=== PATIENT | male | born 1955 | race Two or more races ===

== ENCOUNTER 2016-08-09 11:46 | Emergency (ER) | payer MEDICARE ==
[2016-08-09] MEDS ORDERED: DIAZEPAM 5 MG/ML 2 ML SYRINGE IM STA (12:11)
[2016-08-09] MEDS ORDERED: HYDROmorphone 1 MG/ML 1 ML SYRINGE IM STA (12:11)
--- NOTE | 2016-08-09 12:17 | ED ---
Upper Extremity HPI - General Chief Complaint: Extremity Injury, Upper Stated Complaint: back/shoulder pain Time Seen by Provider: 08/09/16 12:01 Source: patient, RN notes reviewed Mode of arrival: ambulatory Limitations: no limitations - History of Present Illness Initial Comments: 60-year-old male presents emergency Department chief complaint right shoulder pain. Patient states she's having ongoing shoulder pain worsening ever since he had surgery to his right hand. Patient states that Dr. Gee did surgery for trigger finger on his right hand. Patient states that shortly after having surgery he started having increasing right shoulder pain. Patient states that he followed up and advised him of this pain and at this time he received a cortisone injection in the anterior portion of the shoulder. Patient states that has not helped a continues to have worsening pain. Patient states his been taking [place] more than he is prescribed to alleviate the pain states is not helping. Patient states he called orthopedics again today and this a there is nobody there to evaluate him that he has no appointment tomorrow and get worsening symptoms or emergency department for possible MRI. Patient states that he has no weakness is increased pain to the shoulder. He states he has had prior surgery years ago for rotator cuff injury. Patient denies chest pain or shortness of breath. Denies any headache, dizziness, neck pain - Related Data Home Medications Medication Instructions Recorded Confirmed ZOLMitriptan [Zomig] 5 mg PO DAILY PRN 11/08/13 08/09/16 Escitalopram Oxalate [Lexapro] 10 mg PO DAILY 08/09/16 08/09/16 Fluticasone Nasal [place] [Flonase 1 spray EA NOSTRIL DAILY 08/09/16 08/09/16 Nasal [place]] HYDROcodone/APAP 5-325MG [[place] 1 tab PO Q6HR PRN 08/09/16 08/09/16 5-325] Losartan [Cozaar] 25 mg PO DAILY 08/09/16 08/09/16 traZODone HCL [Desyrel] 100 mg PO HS 08/09/16 08/09/16 Previous Rx's Medication Instructions Recorded Diazepam [Valium] 5 mg PO TID #10 tab 08/09/16 Allergies Allergy/AdvReac Type Severity Reaction Status Date / Time cephalexin monohydrate AdvReac yeast in Verified 08/09/16 12:44 [From Keflex] mouth Review of Systems ROS Statement: Those systems with pertinent positive or pertinent negative responses have been documented in the HPI. ROS Other: All systems not noted in ROS Statement are negative. Past Medical History Past Medical History: Sleep Apnea/CPAP/BIPAP Additional Past Medical History / Comment(s): chronic hip & back pain, migraines , recent bowel habit changes History of Any Multi-Drug Resistant Organisms: None Reported Past Surgical History: Orthopedic Surgery Additional Past Surgical History / Comment(s): right hip surg.,rt hand,rt shoulder Past Anesthesia/Blood Transfusion Reactions: No Reported Reaction Past Psychological History: Anxiety Smoking Status: Former smoker Past Alcohol Use History: None Reported Past Drug Use History: None Reported General Exam Limitations: no limitations General appearance: alert, in no apparent distress Neck exam: Present: normal inspection, full ROM. Absent: tenderness, meningismus, lymphadenopathy Respiratory exam: Present: normal lung sounds bilaterally. Absent: respiratory distress, wheezes, rales, rhonchi, stridor Cardiovascular Exam: Present: regular rate, normal rhythm, normal heart sounds. Absent: systolic murmur, diastolic murmur, rubs, gallop, clicks Extremities exam: Present: other (Right shoulder is tenderness palpation to the surface there is an area of ecchymosis noted, is old surgical scars noted patient has full range of motion neurovascular intact there is tenderness along the scapula patient equal strength bilaterally though he reports pain with range of motion.) Neurological exam: Present: alert, oriented X3, CN II-XII intact, reflexes normal. Absent: motor sensory deficit Skin exam: Present: warm, dry, intact, normal color. Absent: rash Course Vital Signs 08/09/16 08/09/16 11:57 12:44 Temperature 98.0 F 97.6 F Pulse Rate 81 66 Respiratory 20 16 Rate Blood Pressure 170/97 141/84 O2 Sat by Pulse 95 Oximetry Medical Decision Making - Medical Decision Making 60-year-old male presented for right shoulder pain. Patient states pain is improved after IM injections. Patient's CT shows some AC joint changes. Patient has an appointment tomorrow morning with orthopedics. Patient states his pain is under control and will be discharged. Disposition Clinical Impression: Right shoulder pain, Rotator cuff injury Disposition: HOME SELF-CARE Condition: Stable Instructions: Shoulder Pain (ED) Additional Instructions: Please return to the Emergency Department if symptoms worsen or any other concerns. Follow-up with orthopedics tomorrow morning. Prescriptions: Diazepam [Valium] 5 mg PO TID #10 tab Time of Disposition: 13:46
--- NOTE | 2016-08-09 13:29 | CT ---
EXAMINATION TYPE: CT shoulder RT wo con DATE OF EXAM: 08/09/2016 1:22 PM COMPARISON: NONE HISTORY: Right sided shoulder pain post OP anesthetic block 2-[address] DLP: [address] of the right shoulder with reconstruction imaging. TECHNIQUE: Unenhanced CT of the right shoulder was performed with bone and soft tissue window setting s submitted in the axial coronal and sagittal planes. FINDINGS: I do not see evidence for fracture or dislocation. No evidence for subacromial impingement as there is a flat acromium. There is osseous convex to the lung the undersurface of the distal cla vicle which may result in a degree of impingement. Moderate AC joint arthropathy and spurring seen. T here is degenerative narrowing of the glenohumeral joint space. Cystic degenerative changes seen of t he humeral head. No obvious rotator cuff abnormality seen on CT. MRI is much more sensitive and spec ific to rotator cuff pathology. No soft tissue masses appreciated. Visualized portions of the right lung demonstrate right apical scarring. IMPRESSION: 1. No evidence for fracture or dislocation. 2. I suspect a degree of subcutaneous clavicular impingement. AC joint arthropathy also seen. Degener ative changes as noted.
[2016-08-09 13:51] VITALS: BP 146/90; PULSE 95; RESP 20; TEMP 98.1
== END 2016-08-09 13:52 | disposition home or self-care (01) ==
LOC: EC 11:46
DX: S40.011A Contusion of right shoulder, initial encounter (principal); F41.9 Anxiety disorder, unspecified; Z87.891 Personal history of nicotine dependence; Z79.899 Other long term (current) drug therapy; Z88.1 Allergy status to other antibiotic agents; X58.XXXA Exposure to other specified factors, initial encounter
CPT/HCPCS: 99283; 96372 ×2; 73200; J3360; J1170

== ENCOUNTER 2017-08-24 09:47 | Day surgery (SDC) | payer MEDICARE ==
[2017-08-17 16:08] VITALS: BMI 29.5
[~2017-08-24 09:47] MED LIST: DEXAMETHASONE SOD PHOSPHATE 10 MG/ML 1 ML VIAL IV ONE; LACTATED RINGERS 1,000 ML IV SCH; MORPHINE SULFATE 4 MG/ML SYRINGE IV PRN; ONDANSETRON ODT 4 MG TAB PO ONE; SODIUM CHLORIDE 0.9% 1,000 ML IV SCH
[2017-08-24] MEDS ORDERED: IV FLUID CONTINUATION 950 ML IV ONE (10:34)
[2017-08-24 10:42] LABS: Anion Gap 10 mmol/L; Blood Urea Nitrogen 20 mg/dL (9-20); Calcium 9.1 mg/dL (8.4-10.2); Carbon Dioxide 23 mmol/L (22-30); Chloride 110 mmol/L (98-107); Glucose 88 mg/dL (74-99); Potassium 4.7 mmol/L (3.5-5.1); Sodium 143 mmol/L (137-145)
[2017-08-24 10:45] LABS: HCT 42.5 % (39.0-53.0); HGB 14.5 gm/dL (13.0-17.5); MCH 30.3 pg (25.0-35.0); MCHC 34.2 g/dL (31.0-37.0); MCV 88.5 fL (80.0-100.0); Mean Platelet Volume 6.6; Platelet Count 217 k/uL (150-450); RDW 13.3 % (11.5-15.5); WBC 5.6 k/uL (3.8-10.6)
[2017-08-24 11:29] LABS: Eosinophils # (M) 0.17 k/uL (0-0.7); Lymphocytes # (M) 1.96 k/uL (1.0-4.8); Monocytes # (M) 0.62 k/uL (0-1.0); Neutrophils # (M) 2.86 k/uL (1.3-7.7); Neutrophils % (M) 51 %; Nucleated Red Blood Cells 0 /100 WBC (0-0); Total Cells Counted 100
[2017-08-24 11:30] LABS: Anisocytosis (M) Present
[2017-08-24] MEDS ORDERED: ROCURONIUM BROMIDE 10 MG/ML 10 ML VIAL IV ONE (11:58)
[2017-08-24] MEDS ORDERED: MORPHINE SULFATE 10 MG/ML SYRINGE ONE (11:58)
[2017-08-24] MEDS ORDERED: HEPARIN SODIUM,PORCINE 5,000 UNIT/ML 1 ML VIAL ONE (11:58)
[2017-08-24] MEDS ORDERED: MIDAZOLAM 2 MG/2 ML VIAL ONE (11:58)
[2017-08-24] MEDS ORDERED: ISOPROTERENOL 250 MCG/1.25 ML SYR IV ONE (11:58)
[2017-08-24] MEDS ORDERED: PROPOFOL 10 MG/ML 20 ML VIAL IV ONE (11:58)
[2017-08-24] MEDS ORDERED: fentaNYL (PF) 50 MCG/ML 2 ML AMP ONE (11:58)
[2017-08-24] MEDS ORDERED: LIDOCAINE 2% INJ 20 MG/ML SQ ONE (12:28)
[2017-08-24] MEDS ORDERED: HEPARIN SODIUM 1,000 UN/ML (10ML VL) ONE (13:12)
[2017-08-24] MEDS ORDERED: HEPARIN SODIUM (1,000 UNIT/ML) 1,000 UNIT in SODIUM CHLORIDE 0.9% 1,000 ML IRRIGATION ONE (13:33)
[2017-08-24] MEDS ORDERED: ACETAMINOPHEN TAB 325 MG TAB PO PRN (14:31)
[2017-08-24] MEDS ORDERED: ACETAMINOPHEN IV (For NPO) 1,000 MG in EMPTY BAG 1 BAG IVPB ONE (14:36)
[2017-08-24] MEDS ORDERED: HYDROcodone/APAP 5-325MG 1 EACH TAB PO PRN (14:36)
[2017-08-24] MEDS ORDERED: SUMAtriptan SUCCINATE 50 MG TAB PO PRN (14:42)
--- NOTE | 2017-08-24 14:44 | P.PCN ---
Preoperative Diagnosis: Symptoms Recurrent syncope Twelve-lead ECG shows sinus rhythm normal AK interval 188 ms narrow QRS normal ST segments no delta waves no epsilon waves normal precordial ST segments normal QT interval narrow QRS Tilt table test performed Baseline blood pressure 132/86. His mercury Baseline heart rate 75 beats a minute Patient was tilted upright at an angle of 70 per protocol there was no significant change in his heart rate blood pressure and he remained asymptomatic throughout the procedure Impression Normal heart rate and blood pressure response to upright tilting Plan Patient also underwent successful atrial flutter ablation. He had no other inducible supraventricular tachycardias. No PVCs were introduced no nonsustained ventricular tachycardia was induced. If he continues to have recurrent presyncope then consider cardiac MRI given the QRS fractionation on the PVCs that were noted in his previous ECG. In addition implantation of a loop monitor may also be considered at that point Anesthesia: none Disposition: observation
[2017-08-24] MEDS ORDERED: LACTATED RINGERS 1,000 ML IV ONE (14:45)
--- NOTE | 2017-08-24 16:16 | CE ---
CARDIAC ELECTROPHYSIOLOGY REPORT Favio Rosales is a 61-year-old male patient of Dr. Zavala and Dr. Allen who has 1) recurrent syncope and 2) recurrent palpitations. The patient has stated that these two events are temporally unrelated. He first underwent a tilt table test which was normal. He is brought in for a diagnostic EP study, since we have documented supraventricular tachycardia at 150 beats per minute which is symptomatic. Patient was brought to the EP lab in a fasting state. Written informed consent was obtained prior to the procedure. The left shoulder area was prepped and draped as per protocol. Lidocaine 1% was used for local anesthesia. Venous sheaths were placed in the right and left femoral veins and diagnostic catheters were placed in the high right atrium, His bundle area, right ventricle and coronary sinus. Sinus cycle length 892 milliseconds, GA interval 157 milliseconds, QRS 84 milliseconds, QT 399 milliseconds. AH interval 118 milliseconds, HV interval 39 milliseconds. Sinus node recovery times at 600, 500 and 400 milliseconds were 1119, 1125 and 1235 milliseconds. Corresponding corrected sinus node recovery times were mildly prolonged at a paced cycle length of 400 milliseconds. AV node Wenckebach block 450 milliseconds. VA Wenckebach block greater than 500 milliseconds. No slow pathway or delta waves evident at baseline. Isuprel was started wide open and then 2 mcg. AV node Wenckebach block improved to 270 milliseconds. No evidence of slow pathway conduction. No delta waves noted. VA Wenckebach block at 420 milliseconds. Burst stimulation was performed from the high right atrium, from the right ventricle and from the coronary sinus. No arrhythmias were induced. Extrastimulation with up to double extrastimuli was performed. Two sites were interrogated. No inducible arrhythmias. Therefore decision was made to proceed with an atrial flutter ablation, since the patient had a supraventricular tachycardia with a ventricular rate of 150 beats per minute. Intracardiac echocardiography was performed. Three-dimensional mapping was performed. The isthmus was identified. Isthmus pouch was noted in the mid isthmus. eustachian ridge was noted. RF ablation was applied from the tricuspid anulus to the eustachian ridge. The line was completed anatomically and interrogated in a 100% grid. Non-capture was documented at high outputs along the line. With pacing maneuvers, differential pacing was performed. Pacing maneuvers were performed. Differential pacing improved a complete bidirectional block. All catheters were removed at the end of the procedure. The patient did receive 4000 units of IV heparin. PLAN: Anticoagulate with Xarelto 20 mg p.o. daily for at least one month starting today. Follow up with Dr. Zavala and Dr. Allen. MARC / CHRISTELLE: [id number] /
[2017-08-24] MEDS ORDERED: RIVAROXABAN 20 MG TAB PO SCH (17:30)
[2017-08-24] MEDS ORDERED: TEMAZEPAM 7.5 MG CAP PO PRN (19:30)
--- NOTE | 2017-08-25 08:19 | P.DS ---
Providers Attending physician: Joselito Greene Primary care physician: [facility] Course: Patient is doing well. He has not had any arrhythmias ECG is normal he denies any chest discomfort no dizziness lightheadedness and he denies any palpitations. He has been walking around to the bathroom On examination His pulse rate is in the 60s is afebrile 98.1F blood pressure 125/77 mmHg Head and neck examination is normal Heart sounds S1 and S2 are normal no murmurs or gallops no rub Breath sounds are clear no rhonchi no crackles Abdomen soft nontender Extremities warm no edema Impression History of supraventricular tachycardia at 150 beats a minute. Diagnostic EP study did not reveal any SVT such as AV node reentry, or orthodromic reentry. Successful atrial flutter ablation was performed. He also has a history of frequent PVCs with QRS fractionation. No PVCs and nonsustained ventricular tachycardiac been used Plan Discharge home bilevel him today. Xarelto 20 mg by mouth daily for 2 months hold Mobic in the interim Follow-up with Dr. Savage in 1 week Patient Condition at Discharge: Stable Plan - Discharge Summary Discharge Rx Participant: No New Discharge Prescriptions: New Rivaroxaban [Xarelto] 20 mg PO DAILY #30 tab Continue RX: ZOLMitriptan [Zomig] 5 mg PO DAILY PRN PRN Reason: Migraine Headache RX: HYDROcodone/APAP 5-325MG [[place] 5-325] 1 tab PO Q6HR PRN PRN Reason: Pain RX: Meloxicam 7.5 mg PO DAILY Discharge Medication List RX: ZOLMitriptan [Zomig] 5 mg PO DAILY PRN 11/08/13 [History] RX: HYDROcodone/APAP 5-325MG [[place] 5-325] 1 tab PO Q6HR PRN 08/09/16 [History] RX: Meloxicam 7.5 mg PO DAILY 08/24/17 [History] Rivaroxaban [Xarelto] 20 mg PO DAILY #30 tab 08/24/17 [Rx] Follow up Appointment(s)/Referral(s): Rocky Zavala MD [STAFF PHYSICIAN] - 1 Week Activity/Diet/Wound Care/Special Instructions: Post EP study - Ablation instructions 1. Keep access sites dry for 2 days. 2. No heavy lifting or straining for 2 days. 3. Avoid bending the hips repeatedly for 2 days. 4. You may go up and down stairs slowly Call if the following is noted 1. Bleeding, increasing swelling or pain at the access sites. 2. Increasing chest discomfort, especially upon taking a deep breath. 3. Increasing shortness of breath, at rest or with exertion. 4. Undue cough / phlegm 5. Difficulty or pain while swallowing. 6. Pain or change in color in the extremities. 7. Fever, chills, rigors. 8. Increasing headache or neurologic symptoms. 9. Dizziness, fainting, palpitations Xarelto 20 mg by mouth daily for one month Avoid Mobic for this month Follow Dr. Savage in a week. Discharge Disposition: HOME SELF-CARE
[2017-08-25 08:51] VITALS: RESP 16
[2017-08-25] MEDS ORDERED: MELOXICAM 7.5 MG TAB PO SCH (09:00)
[2017-08-25 12:10] VITALS: BP 141/91; PULSE 72; TEMP 98.1
== END 2017-08-25 13:28 | disposition home or self-care (01) ==
LOC: CATHEP 09:47 → 3OBS 14:25 → CATHEP 08-25 13:28
PROVIDERS: ATTEND Internal Medicine Clinical Cardiac Electrophysiology
DX: I47.1 Supraventricular tachycardia (principal); R55 Syncope and collapse; I49.3 Ventricular premature depolarization; I10 Essential (primary) hypertension; E78.5 Hyperlipidemia, unspecified; Z79.1 Long term (current) use of non-steroidal anti-inflammatories (NSAID); Z88.1 Allergy status to other antibiotic agents
CPT/HCPCS: 93660 ×2; 93623; 93662; 93613; 93653; 80048; 85025; C1894; C1769 ×2; C1893; C1730 ×3; C1759; C1732; J2001; J2250; J1644 ×2; J2270; J3010; J2704

== ENCOUNTER 2018-04-13 10:04 | Day surgery (SDC) | payer MEDICARE ==
[2018-04-11 09:01] VITALS: BMI 30.4
[~2018-04-13 10:04] MED LIST changes: -DEXAMETHASONE SOD PHOSPHATE 10 MG/ML 1 ML VIAL IV ONE; -MORPHINE SULFATE 4 MG/ML SYRINGE IV PRN; -ONDANSETRON ODT 4 MG TAB PO ONE; -SODIUM CHLORIDE 0.9% 1,000 ML IV SCH
[2018-04-13] MEDS ORDERED: LACTATED RINGERS 1,000 ML IV ONE (10:25)
[2018-04-13 10:26] VITALS: RESP 18; TEMP 98
[2018-04-13 10:32] LABS: Glucose,Whole Blood 92 mg/dL (75-99)
[2018-04-13] MEDS ORDERED: PROPOFOL 10 MG/ML 20 ML VIAL IV ONE (11:15)
--- NOTE | 2018-04-13 11:38 | P.PCN ---
Date of Procedure: 04/13/18 Procedure(s) Performed: BRIEF HISTORY: Patient is a 62-year-old pleasant male, scheduled for an elective colonoscopy as a part of evaluation of chronic constipation for the last 6 months duration. Her sister was diagnosed with colon cancer at age 60. PROCEDURE PERFORMED: Colonoscopy with biopsy and snare polypectomy. PREOPERATIVE DIAGNOSIS: Chronic constipation and family history of colon cancer. IV sedation per Anesthesia. PROCEDURE: After informed consent was obtained, the patient, was brought into the endoscopy unit. IV sedation was administered by Anesthesia under continuous monitoring. Digital rectal examination was normal. Initially the Olympus CF- 160 flexible video colonoscope was then inserted in the rectum, gradually advanced into the cecum without any difficulty. Careful examination was performed as the scope was gradually being withdrawn. Ileocecal valve and the appendiceal orifice were visualized and appeared normal. Prep was excellent. Mucosa of the cecum, ascending colon, appeared normal. In the hepatic flexure there was a 5 mm sessile polyp removed by snare polypectomy. In the transverse colon there was another 5 mm polyp that was removed by snare polypectomy. Rest of the transverse colon, descending colon, appeared normal. In the proximal sigmoid colon was a 23-3 mm diminutive polyp removed by snare polypectomy. There were 2 patchy areas of erythema with mucosal friability in the distal sigmoid colon that was biopsied. Rest of the sigmoid colon, and rectum appeared normal. Retroflexion was performed in the rectum and no lesions were seen. The patient tolerated the procedure well. IMPRESSION: 5 mm Sessile hepatic flexure polyp status post polypectomy 5 mm sessile transverse colon polyp status post polypectomy 2-3 mm sigmoid colon polyp status post polypectomy Patchy areas of colitis in the distal sigmoid colon status post biopsy RECOMMENDATIONS: Findings of this examination were discussed with the patient as his family.. He was advised to follow with the biopsy results. In the meantime he will continue with osmotic laxatives on a daily basis and he'll be seen in office in 4 weeks.
[2018-04-13 12:05] VITALS: BP 129/80; PULSE 75
== END 2018-04-13 12:27 | disposition home or self-care (01) ==
LOC: ORWHC2ENDO 10:04
PROVIDERS: ATTEND Internal Medicine Gastroenterology
DX: D12.3 Benign neoplasm of transverse colon (principal); D12.5 Benign neoplasm of sigmoid colon; K52.9 Noninfective gastroenteritis and colitis, unspecified; Z80.0 Family history of malignant neoplasm of digestive organs; F41.9 Anxiety disorder, unspecified; Z87.891 Personal history of nicotine dependence; F39 Unspecified mood [affective] disorder; M79.7 Fibromyalgia; Z79.891 Long term (current) use of opiate analgesic; Z79.1 Long term (current) use of non-steroidal anti-inflammatories (NSAID); Z79.899 Other long term (current) drug therapy; Z88.1 Allergy status to other antibiotic agents; Z88.8 Allergy status to other drugs, medicaments and biological substances
CPT/HCPCS: 88305; 45380; 45385; J2704

== ENCOUNTER 2020-06-21 08:21 | Emergency (ER) | payer MEDICARE ==
[2020-06-21] MEDS ORDERED: DIAZEPAM 5 MG/ML 2 ML INJ IVP STA (08:33)
[2020-06-21] MEDS ORDERED: KETOROLAC 15 MG/ML 1 ML VIAL IVP STA (08:33)
--- NOTE | 2020-06-21 08:44 | ED ---
Extremity Problem HPI - General Chief complaint: Extremity Problem,Nontraumatic Stated complaint: shoulder pain Time Seen by Provider: 06/21/20 08:27 Source: patient, RN notes reviewed Mode of arrival: ambulatory Limitations: no limitations - History of Present Illness Initial comments: This a 64-year-old male presents emergency Department with chief complaint of left shoulder pain after arm pain. Patient states started after he had surgery 10 days ago on his left hand. Patient states that he had nerve block of his left arm. Patient states he had pain when he went home with the next day he was given further pain meds after he called on-call surgeon. Patient states that he is not follow-up in office. Patient was. He went to sleep states it's hurting his neck is been holding his left arm up against his chest and states that he is having increasing left shoulder muscular pain he states that his muscle is spasming, he states it is bumped up on his left shoulder. No chest pain or shortness of breath. - Related Data Home Medications Medication Instructions Recorded Confirmed ZOLMitriptan [Zomig] 5 mg PO DAILY PRN 11/08/13 04/11/18 HYDROcodone/APAP 5-325MG [[place] 1 tab PO Q6HR PRN 08/09/16 04/11/18 5-325] Meloxicam 7.5 mg PO DAILY 08/24/17 04/11/18 LORazepam [Ativan] 1 mg PO DAILY PRN 04/11/18 04/11/18 Sertraline [Zoloft] 50 mg PO DAILY 04/11/18 04/11/18 Previous Rx's Medication Instructions Recorded diazePAM [Valium] 5 mg PO TID PRN 3 Days #9 tab 06/21/20 Allergies Allergy/AdvReac Type Severity Reaction Status Date / Time cephalexin monohydrate AdvReac yeast in Verified 06/21/20 08:26 [From Keflex] mouth polyethylene glycol AdvReac Abdominal Verified 06/21/20 08:26 Pain Review of Systems ROS Statement: Those systems with pertinent positive or pertinent negative responses have been documented in the HPI. ROS Other: All systems not noted in ROS Statement are negative. Past Medical History Past Medical History: Fibromyalgia, Neurologic Disorder, Osteoarthritis (OA), Sleep Apnea/CPAP/BIPAP Additional Past Medical History / Comment(s): See Dr Krishen H&P, states hypoglycemia, No cpap, wears mouthgaurd, chronic hip & back pain, migraines, hx ulcers History of Any Multi-Drug Resistant Organisms: None Reported Past Surgical History: Hernia Repair, Orthopedic Surgery Additional Past Surgical History / Comment(s): right hip surg,rt hand,rt shoulder, umbilical hernia repair, sx for "burst ulcer", COLONOSCOPY Past Anesthesia/Blood Transfusion Reactions: Previous Problems w/ Anesthesia Additional Past Anesthesia/Blood Transfusion Reaction / Comment(s): WAKES UP DURING PROCEDURE Past Psychological History: Anxiety, Depression Smoking Status: Never smoker Past Alcohol Use History: None Reported Past Drug Use History: None Reported - Past Family History Sister(s) Family Medical History: Cancer Additional Family Medical History / Comment(s): COLON Mother Family Medical History: Cancer Additional Family Medical History / Comment(s): LUNG General Exam Limitations: no limitations General appearance: alert, in no apparent distress Head exam: Present: atraumatic, normocephalic, normal inspection Eye exam: Present: normal appearance, PERRL, EOMI. Absent: scleral icterus, c onjunctival injection, periorbital swelling ENT exam: Present: normal exam, normal oropharynx, mucous membranes moist Neck exam: Present: tenderness, full ROM. Absent: normal inspection (There is noted muscle spasm, muscle contracture of the left trapezius left deltoid region), meningismus, lymphadenopathy Respiratory exam: Present: normal lung sounds bilaterally. Absent: respiratory distress, wheezes, rales, rhonchi, stridor Cardiovascular Exam: Present: regular rate, normal rhythm, normal heart sounds. Absent: systolic murmur, diastolic murmur, rubs, gallop, clicks Extremities exam: Present: other (Surgical site is well-healed, sutures in place no erythema no drainage neurovascular intact patient has pain with any palpation the left shoulder, trapezius with obvious muscle spasm ) Neurological exam: Present: alert, oriented X3, CN II-XII intact, reflexes normal. Absent: motor sensory deficit Skin exam: Present: warm, dry, intact, normal color. Absent: rash Course Vital Signs 06/21/20 08:24 Temperature 98 F Pulse Rate 92 Respiratory 20 Rate Blood Pressure 181/109 O2 Sat by Pulse 96 Oximetry Medical Decision Making - Medical Decision Making 64-year-old presented for left shoulder pain. X-ray does not show any significant acute mallet. Patient is neurovascular intact patient is greatly improved after Valium and Toradol patient's muscle spasms have resolved. Patient does have some decreased range of motion and there is concern for adhesive capsulitis patient was instructed to not wear sling, move his left shoulder and to follow-up with orthopedics tomorrow morning. Disposition Clinical Impression: Muscle spasm of left shoulder area, Adhesive capsulitis of left shoulder Disposition: HOME SELF-CARE Condition: Stable Instructions (If sedation given, give patient instructions): Adhesive Capsulitis (ED), Muscle Spasm (ED) Additional Instructions: Please return to the Emergency Department if symptoms worsen or any other concerns. Prescriptions: diazePAM [Valium] 5 mg PO TID PRN 3 Days #9 tab PRN Reason: Muscle Spasm Is patient prescribed a controlled substance at d/c from ED?: Yes When asked, does pt state using other controlled substances?: Yes If prescribed controlled substance>3 days was MAPS reviewed?: Prescribed <3 Days Referrals: Michoacano Allen MD [Primary Care Provider] - 1-2 days Sahil Gee DO [Doctor of Osteopathic Medicine] - 1-2 days Time of Disposition: 09:55
--- NOTE | 2020-06-21 09:01 | XR ---
EXAMINATION TYPE: XR shoulder complete LT DATE OF EXAM: 06/21/2020 CLINICAL HISTORY: Pain after recent surgery hand 10 days ago TECHNIQUE: Three views of the left shoulder are obtained. COMPARISON: None. FINDINGS: There is no acute fracture/dislocation evident in the left shoulder. Moderate narrowing an d spurring at acromioclavicular joint. Distal acromion morphology unremarkable. Glenohumeral joint sh ows [id number] narrowing and mild spurring. Overlying soft tissue is unremarkable. IMPRESSION: As above.
[2020-06-21 10:15] VITALS: BP 146/88; PULSE 78; RESP 16; TEMP 98
== END 2020-06-21 10:14 | disposition home or self-care (01) ==
LOC: EC 08:21
DX: M75.02 Adhesive capsulitis of left shoulder (principal); M62.838 Other muscle spasm; F41.9 Anxiety disorder, unspecified; M19.90 Unspecified osteoarthritis, unspecified site; F32.9 Major depressive disorder, single episode, unspecified; Z79.899 Other long term (current) drug therapy; G47.33 Obstructive sleep apnea (adult) (pediatric); Z99.89 Dependence on other enabling machines and devices; Z79.1 Long term (current) use of non-steroidal anti-inflammatories (NSAID); Z88.1 Allergy status to other antibiotic agents; Z88.8 Allergy status to other drugs, medicaments and biological substances; Z86.69 Personal history of other diseases of the nervous system and sense organs
CPT/HCPCS: 36415; 93005; 85379; 83880; 80053; 83690; 83735; 84484; 85025; 85610; 85730; 86140; 73030; 71275; 99283; 96374; 96375; J2270; J3360; J2405; J1885; Q9967

== ENCOUNTER 2020-06-21 22:14 | Observation (INO) | payer MEDICARE ==
[2020-06-21] MEDS ORDERED: SODIUM CHLORIDE 0.9% 1,000 ML IV STA (22:36)
[2020-06-21] MEDS ORDERED: MORPHINE SULFATE 4 MG/ML SYRINGE IVP STA (23:01)
[2020-06-21] MEDS ORDERED: KETOROLAC 15 MG/ML 1 ML VIAL IVP STA (23:01)
--- NOTE | 2020-06-21 23:01 | ED ---
Chest Pain HPI - General Chief Complaint: Chest Pain Stated Complaint: Revisit L Shoulder Pain Time Seen by Provider: 06/21/20 22:33 Source: patient, RN notes reviewed, old records reviewed Mode of arrival: ambulatory Limitations: no limitations - History of Present Illness Initial Comments: This is a 64-year-old male DF for evaluation of severe left shoulder pain left chest pain left arm pain. Pain that radiates down his arm. He does have history of heart disease with recent history of left hand surgery secondary to contracture. Patient states symptoms of been episodic and he was here earlier in the day for severe pain. Patient states the pain is mildly worsen throughout the night pain recurs DF for evaluation. Patient denying any shortness of breath or diaphoresis MD Complaint: chest pain, other (Left shoulder pain) -: days(s) Onset: during rest Pain Location: left chest Pain Radiation: LUE Severity: severe Severity scale (1-10): 9 Quality: tightness, aching Consistency: constant Improves With: nothing Worsens With: nothing Context: recent surgery Other Symptoms: palpitations Treatments Prior to Arrival: none - Related Data Home Medications Medication Instructions Recorded Confirmed ZOLMitriptan [Zomig] 5 mg PO DAILY PRN 11/08/06/21/20 Meloxicam 7.5 mg PO DAILY 08/24/17 06/21/20 Sertraline [Zoloft] 100 mg PO DAILY 06/21/20 06/21/20 Allergies Allergy/AdvReac Type Severity Reaction Status Date / Time cephalexin monohydrate AdvReac yeast in Verified 06/21/20 22:18 [From Keflex] mouth polyethylene glycol AdvReac Abdominal Verified 06/21/20 22:18 Pain Review of Systems ROS Statement: Those systems with pertinent positive or pertinent negative responses have been documented in the HPI. ROS Other: All systems not noted in ROS Statement are negative. EKG Findings - EKG Comments: EKG Findings:: EKG shows sinus rhythm at 93 ND 188 QRS 92 QTC 447. Repeat. EKG shows sinus rhythm with PVCs rate of 91 ND 184 QRS 78 QTc 442 Past Medical History Past Medical History: Fibromyalgia, Neurologic Disorder, Osteoarthritis (OA), Sleep Apnea/CPAP/BIPAP Additional Past Medical History / Comment(s): See Dr Greene H&P, states hypoglycemia, No cpap, wears mouthgaurd, chronic hip & back pain, migraines, hx ulcers History of Any Multi-Drug Resistant Organisms: None Reported Past Surgical History: Hernia Repair, Orthopedic Surgery Additional Past Surgical History / Comment(s): right hip surg,rt hand,rt shoulder, umbilical hernia repair, sx for "burst ulcer", COLONOSCOPY Past Anesthesia/Blood Transfusion Reactions: Previous Problems w/ Anesthesia Additional Past Anesthesia/Blood Transfusion Reaction / Comment(s): WAKES UP DURING PROCEDURE Past Psychological History: Anxiety, Depression Smoking Status: Never smoker Past Alcohol Use History: None Reported Past Drug Use History: None Reported - Past Family History Sister(s) Family Medical History: Cancer Additional Family Medical History / Comment(s): COLON Mother Family Medical History: Cancer Additional Family Medical History / Comment(s): LUNG General Exam - General Exam Comments Initial Comments: Left hand sutures are clean dry and intact Limitations: no limitations General appearance: alert, in no apparent distress Head exam: Present: atraumatic, normocephalic, normal inspection Eye exam: Present: normal appearance, PERRL, EOMI. Absent: scleral icterus, conjunctival injection, periorbital swelling ENT exam: Present: normal exam, mucous membranes moist Neck exam: Present: normal inspection. Absent: tenderness, meningismus, lymphadenopathy Respiratory exam: Present: normal lung sounds bilaterally. Absent: respiratory distress, wheezes, rales, rhonchi, stridor Cardiovascular Exam: Present: regular rate, normal rhythm, normal heart sounds. Absent: systolic murmur, diastolic murmur, rubs, gallop, clicks GI/Abdominal exam: Present: soft, normal bowel sounds. Absent: distended, tenderness, guarding, rebound, rigid Extremities exam: Present: normal inspection, full ROM, normal capillary refill. Absent: tenderness, pedal edema, joint swelling, calf tenderness Back exam: Present: normal inspection Neurological exam: Present: alert, oriented X3, CN II-XII intact Psychiatric exam: Present: normal affect, normal mood Skin exam: Present: warm, dry, intact, normal color. Absent: rash Course Vital Signs 06/21/20 22:16 Temperature 98.5 F Pulse Rate 95 Respiratory 20 Rate Blood Pressure 187/108 O2 Sat by Pulse 98 Oximetry - Reevaluation(s) Reevaluation #1: 06/22/20 00:15 Medical record is reviewed 06/22/20 00:15 ER visit from prior has been reviewed Reevaluation #2: 06/22/20 00:15 Patient has pain control initially but then recurrence of pain. - Consultations Consultation #1: Spoke with [facility] will admit the patient Chest Pain MDM - MDM 64 male with chest pain and left shoulder pain history of heart disease, patient also has recent history of left shoulder pain which she thought was secondary to contracture his left hand. Patient be admitted for pain control cardiology and orthopedic evaluation Disposition Clinical Impression: Muscle spasm of left shoulder area, Adhesive capsulitis of left shoulder, Atypical chest pain, Chest pain Disposition: ADMITTED IP TO THIS HOSP Condition: Undetermined Is patient prescribed a controlled substance at d/c from ED?: No Referrals: Michoacano Allen MD [Primary Care Provider] - 1-2 days
[2020-06-21] MEDS ORDERED: ONDANSETRON 4 MG/2 ML VIAL IVP STA (23:13)
[2020-06-21 23:34] LABS: ALT 22 U/L (4-49); AST 36 U/L (17-59); African American GFR (CKD) >90 (>60 ml/min/1.73 sqM); Albumin 4.3 g/dL (3.5-5.0); Alkaline Phosphatase 46 U/L (38-126); Anion Gap 6 mmol/L; Blood Urea Nitrogen 26 mg/dL (9-20); C Reactive Protein <5.0 mg/L (<10.0); Calcium 10.1 mg/dL (8.4-10.2); Carbon Dioxide 23 mmol/L (22-30); Chloride 106 mmol/L (98-107); Glucose 107 mg/dL (74-99); Lipase 187 U/L (23-300); Magnesium 2.2 mg/dL (1.6-2.3); Non-African American GFR(CKD) >90 (>60 ml/min/1.73 sqM); Potassium 4.4 mmol/L (3.5-5.1); Sodium 135 mmol/L (137-145); Total Bilirubin 0.6 mg/dL (0.2-1.3); Total Protein 7.4 g/dL (6.3-8.2)
--- NOTE | 2020-06-21 23:47 | CT ---
EXAMINATION TYPE: CT angio chest DATE OF EXAM: 06/21/2020 COMPARISON: None HISTORY: R/O PE, Left Sided Chest Pain CT DLP: 442.90 mGycm Automated exposure control for dose reduction was used. CONTRAST: Performed with IV Contrast, patient injected with 90 mL of Isovue 370. There are 3-D post processed images. There is minimal pulmonary emphysema. The lungs are clear of consolidation. There is no evidence of a pulmonary mass. There is no pleural effusion. There is no pericardial effusion. Heart size is normal . There multiple rounded low-density foci in the liver consistent with multiple cysts. These measure up to 2.5 cm. There are no hilar masses. There is no mediastinal adenopathy. Thoracic aorta is intact. There is asc ending aorta measuring 3.7 cm. There is no dissection. There is normal contrast opacification of the pulmonary arteries. There are no filling defects. The thoracic vertebra have fairly normal alignment. There is no compression fracture. Sternum is inta ct. The ribs appear intact. IMPRESSION: No evidence of pulmonary embolism. Minimal pulmonary emphysema. Hepatic cysts.
[2020-06-21 23:51] LABS: D-Dimer 0.51 mg/L FEU (<0.60); INR 0.9 (<1.2); Partial Thromboplastin Time 24.7 sec (22.0-30.0); Prothrombin Time 9.8 sec (9.0-12.0)
[2020-06-21 23:54] LABS: HCT 46.7 % (39.0-53.0); HGB 15.7 gm/dL (13.0-17.5); MCH 29.9 pg (25.0-35.0); MCHC 33.6 g/dL (31.0-37.0); MCV 89.1 fL (80.0-100.0); Mean Platelet Volume 6.6; Platelet Count 216 k/uL (150-450); RBC 5.24 m/uL (4.30-5.90); RDW 13.9 % (11.5-15.5); WBC 6.8 k/uL (3.8-10.6)
[2020-06-22] MEDS ORDERED: ACET/COD 300 MG/30 MG STARTER PACK 6 TAB BTL PO STA (00:11)
[2020-06-22] MEDS ORDERED: Acetaminophen-Codeine 300-30mg TAB PO STA (00:11)
[2020-06-22] MEDS ORDERED: IBUPROFEN 600 MG STARTER PACK 4 TAB BTL PO STA (00:11)
[2020-06-22] MEDS ORDERED: NITROGLYCERIN SL TABS 0.4 MG TAB SUBLINGUAL PRN (00:12)
[2020-06-22] MEDS ORDERED: MORPHINE SULFATE 4 MG/ML SYRINGE IV STA (00:12)
[2020-06-22] MEDS ORDERED: ASPIRIN 81 MG PO STA (00:12)
[2020-06-22] MEDS: SODIUM CHLORIDE 0.9% 1,000 ML IV SCH ×3 (00:42→20:43)
[2020-06-22 00:54] LABS: Basophils # (M) 0.14 k/uL (0-0.2); Eosinophils # (M) 0.14 k/uL (0-0.7); Lymphocytes # (M) 2.65 k/uL (1.0-4.8); Monocytes # (M) 0.27 k/uL (0-1.0); Neutrophils % (M) 53 %; Nucleated Red Blood Cells 0 /100 WBC (0-0); Total Cells Counted 100
[2020-06-22] MEDS ORDERED: DIAZEPAM 5 MG/ML 2 ML INJ IVP STA (03:04)
[2020-06-22] MEDS ORDERED: LABETALOL 5 MG/ML VIAL MDV IVP STA ×2 (03:04→04:11)
[2020-06-22] MEDS: MORPHINE SULFATE 4 MG/ML SYRINGE IVP PRN ×2 (04:33→09:34)
[2020-06-22] MEDS ORDERED: HYDROmorphone 1 MG/ML 1 ML SYRINGE IVP STA (05:49)
[2020-06-22] MEDS ORDERED: diphenhydrAMINE 50 MG/ML 1 ML VIAL IVP STA (05:49)
--- NOTE | 2020-06-22 11:16 | P.CNOR ---
History of Present Illness - [facility] Consult date: 06/22/20 Consult reason: neck pain History of present illness: This is a 64-year-old male who presented to the emergency department with chest pain and left arm pain. He is approximately 2 and half weeks status post releas e of Dupuytren's contracture of the left hand with Dr. Sahil Gee. He states that for the past week or 2 he has had pain radiating down his left shoulder and arm with some numbness to the upper arm.He does state that he has history of cervical spine issues in the distant past that were treated by his chiropractor.He denies any recent injury or trauma. He states the pain radiates from the side of his neck down his arm into the wrist. He has no complaints regarding the surgical site. He reports no fever or chills. Past Medical History Past Medical History: Fibromyalgia, Neurologic Disorder, Osteoarthritis (OA), Sleep Apnea/CPAP/BIPAP Additional Past Medical History / Comment(s): See Dr Greene H&P, states hypoglycemia, No cpap, wears mouthgaurd, chronic hip & back pain, migraines, hx ulcers History of Any Multi-Drug Resistant Organisms: None Reported Past Surgical History: Hernia Repair, Orthopedic Surgery Additional Past Surgical History / Comment(s): right hip surg,rt hand,rt shoulder, umbilical hernia repair, sx for "burst ulcer", COLONOSCOPY Past Anesthesia/Blood Transfusion Reactions: Previous Problems w/ Anesthesia Additional Past Anesthesia/Blood Transfusion Reaction / Comm: WAKES UP DURING PROCEDURE Past Psychological History: Anxiety, Depression Smoking Status: Former smoker Past Alcohol Use History: None Reported Additional Past Alcohol Use History / Comment(s): smoked 1ppd from age [age] Past Drug Use History: None Reported - Past Family History Sister(s) Family Medical History: Cancer Additional Family Medical History / Comment(s): COLON Mother Family Medical History: Cancer Additional Family Medical History / Comment(s): LUNG Medications and Allergies Home Medications Medication Instructions Recorded Confirmed Type ZOLMitriptan [Zomig] 5 mg PO DAILY PRN 11/08/13 06/21/20 History Meloxicam 7.5 mg PO DAILY 08/24/17 06/21/20 History Sertraline [Zoloft] 100 mg PO DAILY 06/21/20 06/21/20 History Allergies Allergy/AdvReac Type Severity Reaction Status Date / Time cephalexin monohydrate AdvReac yeast in Verified 06/21/20 22:18 [From Keflex] mouth polyethylene glycol AdvReac Abdominal Verified 06/21/20 22:18 Pain Physical Examination This is a pleasant 64-year-old male in no acute distress. He is alert and oriented at this time. Exam of the head neck reveal no obvious deformity. He does have limited range of motion of the cervical spine particularly rotation and side bend to the left. There is limitation in cervical extension as well. He has limited active motion of the Left shoulder. Passively I can forward flex him to about 90 and abduction to about 80 when he begins having pain. Pain is located to the lateral aspect of the shoulder and upper arm. He has full elbow and wrist motion. The incision to the left palm is healing well. There is no erythema, minimal swelling and no sign of infection. His finger motion is significantly improved. He has full extension of the thumb, index, middle and ring fingers. Near full extension of the little finger. Finger strength is good. Mild weakness with thumb extension and finger extension. Neurovascular status to the upper extremities grossly intact. Results - Labs Labs: Abnormal Lab Results - Last 24 Hours (Table) 06/21/20 Range/Units 23:07 Sodium 135 L (137-145) mmol/L BUN 26 H (9-20) mg/dL Glucose 107 H (74-99) mg/dL H & H 06/21/20 Range/Units 23:07 Hgb 15.7 (13.0-17.5) gm/dL Hct 46.7 (39.0-53.0) % Coagulation 06/21/20 Range/Units 23:07 INR 0.9 (<1.2) Result Diagrams: 06/21/20 23:07 06/21/20 23:07 Assessment and Plan (1) Left cervical radiculopathy Current Visit: Yes Status: Acute Code(s): M54.12 - RADICULOPATHY, CERVICAL REGION SNOMED Code(s): 18041268026589278 (2) Dupuytren's contracture of left hand Current Visit: Yes Status: Acute Code(s): M72.0 - PALMAR FASCIAL FIBROMATOSIS [DUPUYTREN] SNOMED Code(s): 655276106 (3) Atypical chest pain Current Visit: Yes Status: Acute Code(s): R07.89 - OTHER CHEST PAIN SNOMED Code(s): 837378643 Plan: The clinical findings are discussed with the patient. His incision is healing very well. There are no postoperative concerns regarding the hand. Regarding his left upper extremity pain and numbness, is recommended he have cervical x-rays and begin on a prednisone taper. We discussed the likely cervical contributions to his arm pain. I will also order physical therapy. We will continue to follow.
[2020-06-22] MEDS ORDERED: ACETAMINOPHEN TAB 325 MG TAB PO PRN (12:56)
[2020-06-22 13:01] LABS: Glucose,Whole Blood 90 mg/dL (75-99)
[2020-06-22] MEDS: HYDROmorphone 0.5 MG/0.5 ML SYRINGE IVP PRN (13:02)
--- NOTE | 2020-06-22 13:09 | P.HPIM ---
History of Present Illness This is a pleasant 64 years old male with past medical history of hyper lipidemia with a right-sided breast cancer with metastasis since April 2020. Chronic low back pain. Fibromyalgia, osteoarthritis Patient presents because of the left shoulder and arm pain radiating all the way down and to the chest around the left shoulder but no neck pain, associated with numbness of the left upper extremity and inability to abduct the left upper extremity due to excoriation pain Patient himself does not think his pain is from his chest. He denies dyspnea or coughing or change in urine or bowel habits or fever He is status post release of Dupuytren's contracture of the left hand with Dr. Sahil Gee. Vitas looks stable, blood pressure 177/95. Labs including CBC, BMP, INR are unremarkable. D-dimer is -0.5. Liver enzymes are not elevated. Troponins 3 are negative with less than 0.012. yap varus is not detected CT of the chest showing no PE. Multiple rounded low-density foci in the liver consistent with multiple cysts measuring up to 2.5 cm EKG showing normal sinus rhythm at [address]-T changes. Cardiology and orthopedic team were consulted from emergency room patient already been evaluated by orthopedic team and diagnosed him with left cervical radiculopathy Review of Systems CONSTITUTIONAL: No fever, no malaise, no fatigue. HEENT: No recent visual problems or hearing problems. Denied any sore throat. CARDIOVASCULAR: No orthopnea, PND, no palpitations, no syncope. PULMONARY: No shortness of breath, no cough, no hemoptysis. GASTROINTESTINAL: No diarrhea, no nausea, no vomiting, no abdominal pain. Normoactive bowel sounds. NEUROLOGICAL: No headaches, no weakness, no numbness. HEMATOLOGICAL: Denies any bleeding or petechiae. GENITOURINARY: Denies any burning micturition, frequency, or urgency. -MUSCULOSKELETAL/RHEUMATOLOGICAL: Denies any joint pain, swelling, or any muscle pain. Except the left shoulder and upper extremity as above ENDOCRINE: Denies any polyuria or polydipsia. Past Medical History Past Medical History: Fibromyalgia, Neurologic Disorder, Osteoarthritis (OA), Sleep Apnea/CPAP/BIPAP Additional Past Medical History / Comment(s): See Dr Ramona Zaman&P, states hypoglycemia, No cpap, wears mouthgaurd, chronic hip & back pain, migraines, hx ulcers History of Any Multi-Drug Resistant Organisms: None Reported Past Surgical History: Hernia Repair, Orthopedic Surgery Additional Past Surgical History / Comment(s): right hip surg,rt hand,rt shoulder, umbilical hernia repair, sx for "burst ulcer", COLONOSCOPY Past Anesthesia/Blood Transfusion Reactions: Previous Problems w/ Anesthesia Additional Past Anesthesia/Blood Transfusion Reaction / Comment(s): WAKES UP DURING PROCEDURE Past Psychological History: Anxiety, Depression Smoking Status: Former smoker Past Alcohol Use History: None Reported Additional Past Alcohol Use History / Comment(s): smoked 1ppd from age [age] Past Drug Use History: None Reported - Past Family History Sister(s) Family Medical History: Cancer Additional Family Medical History / Comment(s): COLON Mother Family Medical History: Cancer Additional Family Medical History / Comment(s): LUNG Medications and Allergies Home Medications Medication Instructions Recorded Confirmed Type ZOLMitriptan [Zomig] 5 mg PO DAILY PRN 11/08/13 06/21/20 History Meloxicam 7.5 mg PO DAILY 08/24/17 06/21/20 History Sertraline [Zoloft] 100 mg PO DAILY 06/21/20 06/21/20 History predniSONE [Deltasone] 20 mg PO DAILY #24 tab 06/22/20 Rx Allergies Allergy/AdvReac Type Severity Reaction Status Date / Time cephalexin monohydrate AdvReac yeast in Verified 06/21/20 22:18 [From Keflex] mouth polyethylene glycol AdvReac Abdominal Verified 06/21/20 22:18 Pain Physical Exam Vitals: Vital Signs Temp Pulse Pulse Resp BP BP Pulse Ox 06/22/20 10:45 97 06/22/20 07:44 97.8 F 70 16 177/95 97 06/22/20 06:52 68 18 176/105 98 06/22/20 05:56 72 18 172/110 98 06/22/20 05:00 67 18 147/101 97 06/22/20 04:09 78 18 170/109 97 06/22/20 03:06 76 18 179/122 98 06/22/20 01:14 97.8 F 70 16 177/95 97 06/22/20 00:51 84 16 185/122 97 06/21/20 22:16 98.5 F 95 20 187/108 98 Intake and Output 06/21/20 06/22/20 06/22/20 22:59 06:59 14:59 Other: Weight 98.883 kg 98.883 kg GENERAL: The patient is alert and oriented x3, not in any acute distress. Well developed, well nourished. HEENT: Pupils are round and equally reacting to light. EOMI. No scleral icterus. No conjunctival pallor. Normocephalic, atraumatic. No pharyngeal erythema. No thyromegaly. CARDIOVASCULAR: S1 and S2 present. No murmurs, rubs, or gallops. PULMONARY: Chest is clear to auscultation, no wheezing or crackles. ABDOMEN: Soft, nontender, nondistended, normoactive bowel sounds. No palpable organomegaly. -MUSCULOSKELETAL: No joint swelling or deformity. Left upper extremity pain and tenderness and inability to abduct the left arm EXTREMITIES: No cyanosis, clubbing, or pedal edema. NEUROLOGICAL: Gross neurological examination did not reveal any focal deficits. SKIN: No rashes. No petechiae Results CBC & Chem 7: 06/21/20 23:07 06/21/20 23:07 Labs: Abnormal Lab Results - Last 24 Hours (Table) 06/21/20 Range/Units 23:07 Sodium 135 L (137-145) mmol/L BUN 26 H (9-20) mg/dL Glucose 107 H (74-99) mg/dL Thrombosis Risk Factor Assmnt - Choose All That Apply Any of the Below Risk Factors Present?: Yes Other Risk Factors: No Assessment and Plan Assessment: Left arm/shoulder pain and numbness, inability to abduct the left arm mostly related to left cervical radiculopathy as per orthopedic team . Chest pain Rule out cardiac causes Status post release of Dupuytren's contracture of the left hand with Dr. Sahil Gee. Multiple liver cysts Plan: This is a pleasant 64 years old male who presents because of chest pain. We'll do serial troponins. Cardiology consult. Also he has left arm pain and numbness related to his left cervical degenerative disease and orthopedic recommended steroid taper and x-ray of the cervical spine. Pain management. Labs and medication were reviewed.. Continue same treatment. Continue with symptomatic treatment. Resume home medication. Monitor lytes and vitals. DVT and GI prophylaxis. Further recommendations depends on the clinical course of the patient DVT prophylaxis: Subcutaneous heparin GI Prophylaxis: Pepcid Prognosis is guarded
--- NOTE | 2020-06-22 14:18 | P.CRDCN ---
History of Present Illness Consult date: 06/22/20 History of present illness: CHIEF COMPLAINT: Left arm pain HISTORY OF PRESENT ILLNESS: This is a 64-year-old male with a past medical history significant for paroxysmal atrial fibrillation with previous ablation in 2018, fibromyalgia, osteoarthritis, and sleep apnea. Patient recently underwent surgery on 06/11/[address] Gee secondary to Dupuytrens contracture. Patient follows in the office with Dr. Zavala. We have been asked to see the patient in consultation for left arm pain. Patient states he had a nerve block for postoperative pain management which he states worked well and his arm was numb. However he states over the weekend his pain significantly increased. He reports pain from his hand all the way up to his shoulder and into his armpit. He reports numbness of his left upper extremity, specifically near the bicep. He denies chest pain or pressure. Denies shortness of breath. DIAGNOSTICS: EKG reveals sinus mechanism with no signs of acute ischemia Chest CT: Negative for PE Laboratory data: WBC 6.8. Hemoglobin 15.7. Platelet count 216. D-dimer 0.51. Sodium 135. Potassium 4.4. BUN 26. Creatinine 0.76. Troponin negative 3. Current home cardiac medications include none REVIEW OF SYSTEMS: At the time of my exam: CONSTITUTIONAL: Denies fever or chills. HEENT: Denies blurred vision, vision changes, or eye pain. Denies hemoptysis CARDIOVASCULAR: Denies chest pain, orthopnea, PND or palpitations RESPIRATORY: No shortness of breath. GASTROINTESTINAL: Denies abdominal pain. Denies nausea or vomiting. HEMATOLOGIC: Denies bleeding disorders. GENITOURINARY: Denies any blood in urine. SKIN: Denies pruitis. Denies rash. PHYSICAL EXAM: VITAL SIGNS: Reviewed. GENERAL: Well-developed in no acute distress. HEENT: Head is normocephalic. Pupils are equal, round. Sclerae anicteric. Mucous membranes of the mouth are moist. Neck supple. No JVD or thyromegaly LUNGS: Respirations even and unlabored. Lungs essentially clear to auscultation bilaterally. HEART: Regular rate and rhythm. S1 and S2 heard. ABDOMEN: Soft. Nondistended. Nontender. EXTREMITIES: Patient with numbness of left upper extremity. Surgical incision to left hand clean dry and intact. No clubbing or cyanosis. Peripheral pulses intact. No lower extremity edema NEUROLOGIC: Awake and alert. Oriented x 3. ASSESSMENT: S/P release of Dupuytrens contracture, 06/11/2020 Left upper extremity radiculopathy History of paroxysmal atrial fibrillation, status post ablation in 2018, maintaining sinus mechanism, not on anticoagulation PLAN: Patient denied any chest pain during examination or prior to coming to the hospital when he was interviewed this morning Troponins are negative x 3 and EKG is unremarkable Obtain 2D echo to assess cardiac structure and function Orthopedics has been consulted for evaluation. Await recommendations Nurse practitioner note has been reviewed by physician. Signing provider agrees with the documented findings, assessment, and plan of care. Past Medical History Past Medical History: Fibromyalgia, Neurologic Disorder, Osteoarthritis (OA), Sleep Apnea/CPAP/BIPAP Additional Past Medical History / Comment(s): See Dr Greene H&P, states hypoglycemia, No cpap, wears mouthgaurd, chronic hip & back pain, migraines, hx ulcers History of Any Multi-Drug Resistant Organisms: None Reported Past Surgical History: Hernia Repair, Orthopedic Surgery Additional Past Surgical History / Comment(s): right hip surg,rt hand,rt shoulder, umbilical hernia repair, sx for "burst ulcer", COLONOSCOPY Past Anesthesia/Blood Transfusion Reactions: Previous Problems w/ Anesthesia Additional Past Anesthesia/Blood Transfusion Reaction / Comment(s): WAKES UP DURING PROCEDURE Past Psychological History: Anxiety, Depression Smoking Status: Former smoker Past Alcohol Use History: None Reported Additional Past Alcohol Use History / Comment(s): smoked 1ppd from age [age] Past Drug Use History: None Reported - Past Family History Sister(s) Family Medical History: Cancer Additional Family Medical History / Comment(s): COLON Mother Family Medical History: Cancer Additional Family Medical History / Comment(s): LUNG Medications and Allergies Home Medications Medication Instructions Recorded Confirmed Type ZOLMitriptan [Zomig] 5 mg PO DAILY PRN 11/08/13 06/21/20 History Meloxicam 7.5 mg PO DAILY 08/24/17 06/21/20 History Sertraline [Zoloft] 100 mg PO DAILY 06/21/20 06/21/20 History predniSONE [Deltasone] 20 mg PO DAILY #24 tab 06/22/20 Rx Allergies Allergy/AdvReac Type Severity Reaction Status Date / Time cephalexin monohydrate AdvReac yeast in Verified 06/21/20 22:18 [From Keflex] mouth polyethylene glycol AdvReac Abdominal Verified 06/21/20 22:18 Pain Physical Exam Vitals: Vital Signs Temp Pulse Pulse Resp BP BP Pulse Ox 06/22/20 10:45 97 06/22/20 07:44 97.8 F 70 16 177/95 97 06/22/20 06:52 68 18 176/105 98 06/22/20 05:56 72 18 172/110 98 06/22/20 05:00 67 18 147/101 97 06/22/20 04:09 78 18 170/109 97 06/22/20 03:06 76 18 179/122 98 06/22/20 01:14 97.8 F 70 16 177/95 97 06/22/20 00:51 84 16 185/122 97 06/21/20 22:16 98.5 F 95 20 187/108 98 Intake and Output 06/21/20 06/22/20 06/22/20 22:59 06:59 14:59 Other: Weight 98.883 kg 98.883 kg Results 06/21/20 23:07 06/21/20 23:07 Cardiac Enzymes 06/21/20 06/21/20 06/22/20 Range/Units 23:07 23:07 01:45 AST 36 (17-59) U/L Troponin I <0.012 0.013 (0.000-0.034) ng/mL 06/22/20 Range/Units 05:05 AST (17-59) U/L Troponin I <0.012 (0.000-0.034) ng/mL Coagulation 06/21/20 Range/Units 23:07 PT 9.8 (9.0-12.0) sec APTT 24.7 (22.0-30.0) sec CBC 06/21/20 Range/Units 23:07 WBC 6.8 (3.8-10.6) k/uL RBC 5.24 (4.30-5.90) m/uL Hgb 15.7 (13.0-17.5) gm/dL Hct 46.7 (39.0-53.0) % Plt Count 216 (150-450) k/uL Comprehensive Metabolic Panel 06/21/20 Range/Units 23:07 Sodium 135 L (137-145) mmol/L Potassium 4.4 (3.5-5.1) mmol/L Chloride 106 (98-107) mmol/L Carbon Dioxide 23 (22-30) mmol/L BUN 26 H (9-20) mg/dL Creatinine 0.76 (0.66-1.25) mg/dL Glucose 107 H (74-99) mg/dL Calcium 10.1 (8.4-10.2) mg/dL AST 36 (17-59) U/L ALT 22 (4-49) U/L Alkaline Phosphatase 46 (38-126) U/L Total Protein 7.4 (6.3-8.2) g/dL Albumin 4.3 (3.5-5.0) g/dL Current Medications Generic Name Dose Route Start Last Admin Trade Name Freq PRN Reason Stop Dose Admin Acetaminophen 650 mg 06/22/20 12:56 06/22/20 13:03 Acetaminophen Tab 325 Mg Tab PO 650 mg Q6HR PRN Administration Fever and/ or Pain Hydromorphone HCl 0.5 mg 06/22/20 12:56 06/22/20 13:02 Hydromorphone 0.5 Mg/0.5 Ml Syringe IVP 0.5 mg Q3HR PRN Administration pain of 9 or 10 Sodium Chloride 1,000 mls @ 100 mls/hr 06/22/20 00:15 06/22/20 10:56 Saline 0.9% IV 100 mls/hr .Q10H [facility] Administration Methylprednisolone Sodium Succinate 80 mg 06/22/20 16:00 Methylprednisolone Sod Succi 125 Mg/2 Ml Vial IV Q8HR LOLA Morphine Sulfate 4 mg 06/21/20 23:01 06/22/20 09:34 Morphine Sulfate 4 Mg/Ml Syringe IVP 4 mg Q4HR PRN Administration Pain Nitroglycerin 0.4 mg 06/22/20 00:12 Nitroglycerin Sl Tabs 0.4 Mg Tab SUBLINGUAL Q5M PRN Chest Pain Intake and Output 06/21/20 06/22/20 06/22/20 22:59 06:59 14:59 Other: Weight 98.883 kg 98.883 kg 06/21/20 23:07 06/21/20 23:07
--- NOTE | 2020-06-22 14:25 | XR ---
Cervical spine HISTORY: Pain 5 views of the cervical spine correlated to prior exam 11/06/2014 There is multilevel facet arthropathy change. Atherosclerotic vascular calcifications are suspected a long the distribution of the carotid arteries. Oblique images show some foraminal encroachment on the right at C3-4, C5-6 and C6-7, on the left at C3-4 and C4-5. There is a retrolisthesis grade 1 C3-4. Loss of disc height is present at C2-3, C5-6 and C6-7, there is multilevel spondylosis. Cervical vert ebral bodies show preserved height and bone mineralization. C7-T1 is not seen. Prevertebral soft tiss ues are normal. IMPRESSION: Degenerative disc disease, facet arthropathy, multilevel foraminal encroachment and limit ations as described, additional findings above.
[2020-06-22] MEDS: methylPREDNISolone SOD SUCCI 125 MG/2 ML VIAL IV SCH ×2 (16:14→23:15)
[2020-06-22] MEDS ORDERED: FAMOTIDINE 20 MG TAB PO STA (22:46)
[2020-06-22] MEDS: CALCIUM CARBONATE 500 MG CHEWABLE PO PRN (23:16)
[2020-06-23 03:11] LABS: Cholesterol 181 mg/dL (<200); HDL Cholesterol 56 mg/dL (40-60); LDL Cholesterol,Calculated 112 mg/dL (0-99); Triglycerides 64 mg/dL (<150)
[2020-06-23] MEDS: CALCIUM CARBONATE 500 MG CHEWABLE PO PRN ×2 (05:03→11:10)
[2020-06-23] MEDS: SERTRALINE 100 MG TAB PO SCH (08:06)
[2020-06-23] MEDS: methylPREDNISolone SOD SUCCI 125 MG/2 ML VIAL IV SCH ×3 (08:06→23:40)
[2020-06-23] MEDS ORDERED: ASPIRIN 325 MG TAB PO SCH (09:00)
--- NOTE | 2020-06-23 11:07 | P.PN ---
Subjective Progress Note Date: 06/23/20 CHIEF COMPLAINT: Left arm pain HISTORY OF PRESENT ILLNESS: 06/22/2020 This is a 64-year-old male with a past medical history significant for paroxysmal atrial fibrillation with previous ablation in 2018, fibromyalgia, osteoarthritis, and sleep apnea. Patient recently underwent surgery on 06/11/[address] Gee secondary to Dupuytrens contracture. Patient follows in the office with Dr. Zavala. We have been asked to see the patient in consultation for left arm pain. Patient states he had a nerve block for postoperative pain management which he states worked well and his arm was numb. However he states over the weekend his pain significantly increased. He reports pain from his hand all the way up to his shoulder and into his armpit. He reports numbness of his left upper extremity, specifically near the bicep. He denies chest pain or pressure. Denies shortness of breath. 06/23/2020 Patient examined this morning at the bedside. Patient denies chest pain or pressure. Denies shortness of breath. He has been placed in a cervical collar per orthopedics. Echocardiogram has been obtained and results are currently pending. Blood pressure this morning 151/104. Heart rate 104. PHYSICAL EXAM: VITAL SIGNS: Reviewed. GENERAL: Well-developed in no acute distress. HEENT: Head is normocephalic. Pupils are equal, round. Sclerae anicteric. Mucous membranes of the mouth are moist. Neck supple. No JVD or thyromegaly LUNGS: Respirations even and unlabored. Lungs essentially clear to auscultation bilaterally. HEART: Regular rate and rhythm. S1 and S2 heard. ABDOMEN: Soft. Nondistended. Nontender. EXTREMITIES: Patient with numbness of left upper extremity. Surgical incision to left hand clean dry and intact. No clubbing or cyanosis. Peripheral pulses intact. No lower extremity edema NEUROLOGIC: Awake and alert. Oriented x 3. ASSESSMENT: Chest pain, ruled out, patient denied any chest pain during examination or prior to coming to the hospital S/P release of Dupuytrens contracture, 06/11/2020 Left upper extremity radiculopathy History of paroxysmal atrial fibrillation, status post ablation in 2018, maintaining sinus mechanism, not on anticoagulation Hypertension PLAN: 2D echo ordered. Await results Start patient on Toprol XL 25mg daily. Monitor heart rate and blood pressure Further recommendations pending patient course Nurse practitioner note has been reviewed by physician. Signing provider agrees with the documented findings, assessment, and plan of care. Objective - Vital Signs Vital signs: Vital Signs Temp 97.8 F 06/23/20 07:07 Pulse 104 H 06/23/20 07:07 Resp 20 06/23/20 07:07 BP 151/104 06/23/20 07:07 Pulse Ox 95 06/23/20 07:07 Intake & Output 06/22/20 06/23/20 06/23/20 18:59 06:59 18:59 Intake Total 1040 240 Balance 1040 240 Intake: Intake, IV Titration 800 Amount Sodium Chloride 0.9% 1, 800 000 ml @ 100 mls/hr IV . Q10H [facility] Rx#:[id number] Oral 240 240 Other: # Voids 3 1 - Labs CBC & Chem 7: 06/21/20 23:07 06/21/20 23:07 Labs: Abnormal Lab Results - Last 24 Hours (Table) 06/22/20 Range/Units 05:05 LDL Cholesterol, Calc 112 H (0-99) mg/dL
[2020-06-23] MEDS ORDERED: lisinopriL 10 MG TAB PO SCH (11:15)
--- NOTE | 2020-06-23 11:36 | ECHOF ---
Referral Reason:LV function MEASUREMENTS -------- HEIGHT: 182.9 cm WEIGHT: 98.9 kg BP: 177/95 RVIDd: 4.0 cm (< 3.3) IVSd: 1.7 cm (0.6 - 1.1) LVIDd: 4.2 cm (3.9 - 5.3) LVPWd: 1.8 cm (0.6 - 1.1) IVSs: 2.2 cm LVIDs: 2.2 cm LVPWs: 2.6 cm LAESV Index (A-L): 26.74 ml/m Ao Diam: 3.3 cm (2.0 - 3.7) AV Cusp: 2.2 cm (1.5 - 2.6) LA Diam: 2.9 cm (2.7 - 3.8) MV EXCURSION: 17.586 mm (> 18.000) MV EF SLOPE: 86 mm/s (70 - 150) EPSS: 0.6 cm MV E Umang: 0.56 m/s MV DecT: 123 ms MV A Umang: 0.93 m/s MV E/A Ratio: 0.60 RAP: 5.00 mmHg RVSP: 15.26 mmHg FINDINGS -------- Sinus rhythm. This was a technically adequate study. The left ventricular size is normal. There is severe concentric left ventricular hypertrophy. Ove rall left ventricular systolic function is normal with, an EF between 55 - 60 %. The diastolic fill ing pattern is normal for the age of the patient 5.54. The right ventricle is moderately enlarged. Normal LA size by volume 22+/-6 ml/m2. The right atrial size is normal. Interatrial and interventricular septum intact. There is no evidence of aortic regurgitation. There is no evidence of aortic stenosis. Mild mitral regurgitation is present. Mild tricuspid regurgitation present. There is no evidence of pulmonary hypertension. The right v entricular systolic pressure, as measured by Doppler, is 15.26mmHg. There is no pulmonic regurgitation present. The aortic root size is normal. IVC Not well visulized. There is no pericardial effusion. CONCLUSIONS -------- 1. The left ventricular size is normal. 2. There is severe concentric left ventricular hypertrophy. 3. Overall left ventricular systolic function is normal with, an EF between 55 - 60 %. 4. The diastolic filling pattern is normal for the age of the patient 5.54 5. The right ventricle is moderately enlarged. 6. Mild mitral regurgitation is present. 7. Mild tricuspid regurgitation present. [employer]: Nette Craig RDCS
[2020-06-23] MEDS: SODIUM CHLORIDE 0.9% 1,000 ML IV SCH ×2 (12:23→19:11)
[2020-06-23] MEDS: METOPROLOL SUCCINATE (ER) 25 MG TAB.ER.24H PO SCH (12:26)
--- NOTE | 2020-06-23 12:28 | P.PN ---
Subjective Progress Note Date: 06/23/20 Principal diagnosis: Cervical radiculopathy left upper extremity. Status post Dupuytren release left hand. This is a 64-year-old male who presented to the emergency department with chest pain and left arm pain. He is approximately 2 weeks status post release of Dupuytren's contracture of the left hand with Dr. Sahil Gee. He states that for the past week or 2 he has had pain radiating down his left shoulder and arm with some numbness to the upper arm.He does state that he has history of cervical spine issues in the distant past that were treated by his chiropractor.He denies any recent injury or trauma. He states the pain radiates from the side of his neck down his arm into the wrist. He has no complaints regarding the surgical site. He reports no fever or chills. 06/23/2020: The patient states that his neck and arm pain are slightly improved today. He has been wearing his cervical collar. He has no new complaints or concerns today. Vital signs are stable. Objective - Vital Signs Vital signs: Vital Signs Temp 97.8 F 06/23/20 07:07 Pulse 104 H 06/23/20 07:07 Resp 20 06/23/20 07:07 BP 151/104 06/23/20 07:07 Pulse Ox 95 06/23/20 07:07 Intake & Output 06/22/20 06/23/20 06/23/20 18:59 06:59 18:59 Intake Total 1040 240 Balance 1040 240 Intake: Intake, IV Titration 800 Amount Sodium Chloride 0.9% 1, 800 000 ml @ 100 mls/hr IV . Q10H [facility] Rx#:[id number] Oral 240 240 Other: # Voids 3 1 - Exam This is a pleasant 64-year-old male in no acute distress. He is alert and oriented at this time. Exam of the head neck reveal no obvious deformity. He does have limited range of motion of the cervical spine particularly rotation and side bend to the left. There is limitation in cervical extension as well. He has limited active motion of the Left shoulder. Passively I can forward flex him to about 90 and abduction to about 80 when he begins having pain. Pain is located to the lateral aspect of the shoulder and upper arm. He has full elbow and wrist motion. The incision to the left palm is healing well. There is no erythema, minimal swelling and no sign of infection. His finger motion is significantly improved. He has full extension of the thumb, index, middle and ring fingers. Near full extension of the little finger. Finger strength is good. Mild weakness with thumb extension and finger extension. Neurovascular status to the upper extremities grossly intact. Sutures are removed today without difficulty. - Labs CBC & Chem 7: 06/21/20 23:07 06/21/20 23:07 Labs: Abnormal Lab Results - Last 24 Hours (Table) 06/22/20 Range/Units 05:05 LDL Cholesterol, Calc 112 H (0-99) mg/dL Assessment and Plan (1) Left cervical radiculopathy Current Visit: Yes Status: Acute Code(s): M54.12 - RADICULOPATHY, CERVICAL REGION SNOMED Code(s): 35781895757198449 (2) Dupuytren's contracture of left hand Current Visit: Yes Status: Acute Code(s): M72.0 - PALMAR FASCIAL FIBROMATOSIS [DUPUYTREN] SNOMED Code(s): 187867021 (3) Atypical chest pain Current Visit: Yes Status: Acute Code(s): R07.89 - OTHER CHEST PAIN SNOMED Code(s): 358910052 Plan: The clinical findings are discussed with the patient. His incision is healing very well. There are no postoperative concerns regarding the hand. Regarding his left upper extremity pain and numbness, is recommended he have cervical x-rays and begin on a prednisone taper. We discussed the likely cervical contributions to his arm pain. I will also order physical therapy. He may be discharged to home when cleared medically. Follow-up with Dr. Sahil Gee within the next week.
[2020-06-23] MEDS: HYDROmorphone 0.5 MG/0.5 ML SYRINGE IVP PRN ×3 (16:17→23:41)
[2020-06-23] MEDS: polyethylene glycoL 3350 17 GM POWD.PACK PO SCH (18:08)
[2020-06-23] MEDS ORDERED: hydrALAZINE HCL 25 MG TAB PO PRN (23:21)
--- NOTE | 2020-06-23 23:24 | P.PN ---
Subjective This is a pleasant 64 years old male with past medical history of hyper lipidemia with a right-sided breast cancer with metastasis since April 2020. Chronic low back pain. Fibromyalgia, osteoarthritis Patient presents because of the left shoulder and arm pain radiating all the way down and to the chest around the left shoulder but no neck pain, associated with numbness of the left upper extremity and inability to abduct the left upper extremity due to excoriation pain Patient himself does not think his pain is from his chest. He denies dyspnea or coughing or change in urine or bowel habits or fever He is status post release of Dupuytren's contracture of the left hand with Dr. Sahil Gee. Vitas looks stable, blood pressure 177/95. Labs including CBC, BMP, INR are unremarkable. D-dimer is -0.5. Liver enzymes are not elevated. Troponins 3 are negative with less than 0.012. yap varus is not detected CT of the chest showing no PE. Multiple rounded low-density foci in the liver consistent with multiple cysts measuring up to 2.5 cm EKG showing normal sinus rhythm at [address]-T changes. Cardiology and orthopedic team were consulted from emergency room patient already been evaluated by orthopedic team and diagnosed him with left cervical radiculopathy 06/23/20 Patient states he has significant improvement in his left upper extremity pain and numbness are improving back group home and he feels better but not completely resolved, he says that his pain significantly improved down to 3/10 at rest and goes to 7/10 with movement. With this significant pain in his left upper extremity, motor examination is limited as any movement is painful for the patient, however patient does not complain specifically from weakness rather he complains from pain and numbness. Also he has a sutured point in his left hand from a recent surgery for his Dupuytren's contracture of the left hand. Patient looks satisfied with improvement. However we will wait for orthopedic team final recommendation as they are following the case closely for this reason, Cervical spine x-rays showing degenerative disc disease and facet atrophy with multilevel foraminal encroachment and limitation involving various levels betw een C3 and C7, C8 report for detailed information currently orthopedic team recommending prednisone taper and physical therapy. And patient was started on high dose IV Solu-Medrol 80 mg every 8 hours. We will assess patient response tomorrow and based on his clinical progress and we will make further recommendations. In the same time continue with pain management. Patient is been using Dilaudid 0.5 mg twice daily. We will add [place] 10 mg and encourage patient to use oral pain medication Discontinue morphine as patient does not use it for more than 24 hours. Discontinue IV fluids Review of Systems CONSTITUTIONAL: No fever, no malaise, no fatigue. HEENT: No recent visual problems or hearing problems. Denied any sore throat. CARDIOVASCULAR: No orthopnea, PND, no palpitations, no syncope. PULMONARY: No shortness of breath, no cough, no hemoptysis. GASTROINTESTINAL: No diarrhea, no nausea, no vomiting, no abdominal pain. Normoactive bowel sounds. HEMATOLOGICAL: Denies any bleeding or petechiae. Active Medications Generic Name Dose Route Start Last Admin Trade Name Freq PRN Reason Stop Dose Admin Acetaminophen 650 mg 06/22/20 12:56 06/22/20 13:03 Acetaminophen Tab 325 Mg Tab PO 650 mg Q6HR PRN Administration Fever and/ or Pain Calcium Carbonate/Glycine 1,000 mg 06/22/20 22:46 06/23/20 11:10 Calcium Carbonate 500 Mg Chewable PO 1,000 mg QID PRN Administration Heartburn Hydromorphone HCl 0.5 mg 06/22/20 12:56 06/23/20 19:08 Hydromorphone 0.5 Mg/0.5 Ml Syringe IVP 0.5 mg Q3HR PRN Administration pain of 9 or 10 Sodium Chloride 1,000 mls @ 100 mls/hr 06/22/20 00:15 06/23/20 19:11 Saline 0.9% IV 100 mls/hr .Q10H LOLA Administration Methylprednisolone Sodium Succinate 80 mg 06/22/20 16:00 06/23/20 16:04 Methylprednisolone Sod Succi 125 Mg/2 Ml Vial IV 80 mg Q8HR LOLA Administration Metoprolol Succinate 25 mg 06/23/20 11:15 06/23/20 12:26 Metoprolol Succinate (Er) 25 Mg Tab.Er.24h PO 25 mg DAILY LOLA Administration Morphine Sulfate 4 mg 06/21/20 23:01 06/22/20 09:34 Morphine Sulfate 4 Mg/Ml Syringe IVP 4 mg Q4HR PRN Administration Pain Nitroglycerin 0.4 mg 06/22/20 00:12 Nitroglycerin Sl Tabs 0.4 Mg Tab SUBLINGUAL Q5M PRN Chest Pain Polyethylene Glycol 17 gm 06/23/20 18:00 06/23/20 18:08 Polyethylene Glycol 3350 17 Gm Powd.Pack PO 17 gm DAILY LOLA Administration Sertraline HCl 100 mg 06/23/20 09:00 06/23/20 08:06 Sertraline 100 Mg Tab PO 100 mg DAILY LOLA Administration Objective - Vital Signs Vital signs: Vital Signs Temp 98.4 F 06/23/20 19:10 Pulse 110 H 06/23/20 19:10 Resp 19 06/23/20 19:10 BP 166/94 06/23/20 19:10 Pulse Ox 94 L 06/23/20 19:10 Intake & Output 06/23/20 06/23/20 06/24/20 06:59 18:59 06:59 Intake Total 1660 480 Balance 1660 480 Intake: Intake, IV Titration 700 Amount Sodium Chloride 0.9% 1, 700 000 ml @ 100 mls/hr IV . Q10H [facility] Rx#:[id number] Oral 960 480 Other: # Voids 1 3 2 - Exam GENERAL: The patient is alert and oriented x3, not in any acute distress. Well developed, well nourished. HEENT: Pupils are round and equally reacting to light. EOMI. No scleral icterus. No conjunctival pallor. Normocephalic, atraumatic. No pharyngeal erythema. No thyromegaly. CARDIOVASCULAR: S1 and S2 present. No murmurs, rubs, or gallops. PULMONARY: Chest is clear to auscultation, no wheezing or crackles. ABDOMEN: Soft, nontender, nondistended, normoactive bowel sounds. No palpable organomegaly. -MUSCULOSKELETAL: No joint swelling or deformity. Left upper extremity pain and tenderness and inability to abduct the left arm, he can move his left upper extremity more but still motor examination of the left upper extremity is limi diya due to pain. Clean and healing wound with sutures in the palm of his left hand EXTREMITIES: No cyanosis, clubbing, or pedal edema. NEUROLOGICAL: Gross neurological examination did not reveal any focal deficits. SKIN: No rashes. No petechiae - Labs CBC & Chem 7: 06/21/20 23:06/21/20 23:07 Labs: Abnormal Lab Results - Last 24 Hours (Table) 06/22/20 Range/Units 05:05 LDL Cholesterol, Calc 112 H (0-99) mg/dL Assessment and Plan Assessment: Left arm/shoulder pain and numbness, inability to abduct the left arm mostly related to left cervical radiculopathy as per orthopedic team . Chest pain Rule out cardiac causes Status post release of Dupuytren's contracture of the left hand with Dr. Sahil Gee. Multiple liver cysts Plan: This is a pleasant 64 years old male who presents because of chest pain. Cardiology consult recommended echocardiogram . Metoprolol and Norvasc added. DC IV fluid Orthopedic team recommended steroids. Pain management.Add flexor Labs and medication were reviewed.. Continue same treatment. Continue with symptomatic treatment. Resume home medication. Monitor lytes and vitals. DVT and GI prophylaxis. Further recommendations depends on the clinical course of the patient DVT prophylaxis: Subcutaneous heparin GI Prophylaxis: Pepcid Prognosis is guarded
[2020-06-23] MEDS: CYCLOBENZAPRINE 5 MG TAB PO SCH (23:40)
[2020-06-24] MEDS: HYDROcodone/APAP 10-325MG 1 EACH TAB PO PRN ×4 (01:46→22:35)
[2020-06-24] MEDS: METOPROLOL SUCCINATE (ER) 25 MG TAB.ER.24H PO SCH (07:34)
[2020-06-24] MEDS: CYCLOBENZAPRINE 5 MG TAB PO SCH ×3 (07:34→21:20)
[2020-06-24] MEDS: amLODIPine 10 MG TAB PO SCH (07:34)
[2020-06-24] MEDS: SERTRALINE 100 MG TAB PO SCH (07:34)
[2020-06-24] MEDS: methylPREDNISolone SOD SUCCI 125 MG/2 ML VIAL IV SCH (07:34)
[2020-06-24] MEDS: polyethylene glycoL 3350 17 GM POWD.PACK PO SCH (07:48)
--- NOTE | 2020-06-24 11:15 | P.PN ---
Subjective Progress Note Date: 06/24/20 CHIEF COMPLAINT: Left arm pain HISTORY OF PRESENT ILLNESS: 06/22/2020 This is a 64-year-old male with a past medical history significant for paroxysmal atrial fibrillation with previous ablation in 2018, fibromyalgia, osteoarthritis, and sleep apnea. Patient recently underwent surgery on 06/11/[address] Gee secondary to Dupuytrens contracture. Patient follows in the office with Dr. Zavala. We have been asked to see the patient in consultation for left arm pain. Patient states he had a nerve block for postoperative pain management which he states worked well and his arm was numb. However he states over the weekend his pain significantly increased. He reports pain from his hand all the way up to his shoulder and into his armpit. He reports numbness of his left upper extremity, specifically near the bicep. He denies chest pain or pressure. Denies shortness of breath. 06/23/2020 Patient examined this morning at the bedside. Patient denies chest pain or pressure. Denies shortness of breath. He has been placed in a cervical collar per orthopedics. Echocardiogram has been obtained and results are currently pending. Blood pressure this morning 151/104. Heart rate 104. 06/24/2020 Patient examined this morning at the bedside. Patient denies chest pain or pressure. Denies shortness of breath. Echocardiogram completed revealed eje ction fraction 55-60%, mild mitral regurgitation, and mild tricuspid regurgitation. Blood pressure this morning 166/97. Heart rate in the 80s PHYSICAL EXAM: VITAL SIGNS: Reviewed. GENERAL: Well-developed in no acute distress. HEENT: Head is normocephalic. Pupils are equal, round. Sclerae anicteric. Mucous membranes of the mouth are moist. Neck supple. No JVD or thyromegaly LUNGS: Respirations even and unlabored. Lungs essentially clear to auscultation bilaterally. HEART: Regular rate and rhythm. S1 and S2 heard. ABDOMEN: Soft. Nondistended. Nontender. EXTREMITIES: Patient with numbness of left upper extremity. Surgical incision to left hand clean dry and intact. No clubbing or cyanosis. Peripheral pulses intact. No lower extremity edema NEUROLOGIC: Awake and alert. Oriented x 3. ASSESSMENT: Chest pain, ruled out, patient denied any chest pain during examination or prior to coming to the hospital S/P release of Dupuytrens contracture, 06/11/2020 Left upper extremity radiculopathy History of paroxysmal atrial fibrillation, status post ablation in 2018, maintaining sinus mechanism, not on anticoagulation Hypertension PLAN: Continue Toprol-XL. Patient has been started on Norvasc as well per internal medicine Patient is stable from a cardiac perspective. We will sign off. Please reconsult if needed. Nurse practitioner note has been reviewed by physician. Signing provider agrees with the documented findings, assessment, and plan of care. Objective - Vital Signs Vital signs: Vital Signs Temp 97.4 F L 06/24/20 06:54 Pulse 79 06/24/20 06:54 Resp 18 06/24/20 06:54 BP 166/97 06/24/20 06:54 Pulse Ox 97 06/24/20 06:54 Intake & Output 06/23/20 06/24/20 06/24/20 18:59 06:59 18:59 Intake Total 1660 480 240 Balance 1660 480 240 Intake: Intake, IV Titration 700 Amount Sodium Chloride 0.9% 1, 700 000 ml @ 100 mls/hr IV . Q10H LOLA Rx#:[id number] Oral 960 480 240 Other: # Voids 3 1 - Labs CBC & Chem 7: 06/21/20 23:07 06/21/20 23:07
--- NOTE | 2020-06-24 12:53 | P.PN ---
Subjective This is a pleasant 64 years old male with past medical history of hyper lipidemia with a right-sided breast cancer with metastasis since April 2020. Chronic low back pain. Fibromyalgia, osteoarthritis Patient presents because of the left shoulder and arm pain radiating all the way down and to the chest around the left shoulder but no neck pain, associated with numbness of the left upper extremity and inability to abduct the left upper extremity due to excoriation pain Patient himself does not think his pain is from his chest. He denies dyspnea or coughing or change in urine or bowel habits or fever He is status post release of Dupuytren's contracture of the left hand with Dr. Sahil Gee. Vitas looks stable, blood pressure 177/95. Labs including CBC, BMP, INR are unremarkable. D-dimer is -0.5. Liver enzymes are not elevated. Troponins 3 are negative with less than 0.012. yap varus is not detected CT of the chest showing no PE. Multiple rounded low-density foci in the liver consistent with multiple cysts measuring up to 2.5 cm EKG showing normal sinus rhythm at [address]-T changes. Cardiology and orthopedic team were consulted from emergency room patient already been evaluated by orthopedic team and diagnosed him with left cervical radiculopathy 06/23/20 Patient states he has significant improvement in his left upper extremity pain and numbness are improving back longterm and he feels better but not completely resolved, he says that his pain significantly improved down to 3/10 at rest and goes to 7/10 with movement. With this significant pain in his left upper extremity, motor examination is limited as any movement is painful for the patient, however patient does not complain specifically from weakness rather he complains from pain and numbness. Also he has a sutured point in his left hand from a recent surgery for his Dupuytren's contracture of the left hand. Patient looks satisfied with improvement. However we will wait for orthopedic team final recommendation as they are following the case closely for this reason, Cervical spine x-rays showing degenerative disc disease and facet atrophy with multilevel foraminal encroachment and limitation involving various levels betw een C3 and C7, C8 report for detailed information currently orthopedic team recommending prednisone taper and physical therapy. And patient was started on high dose IV Solu-Medrol 80 mg every 8 hours. We will assess patient response tomorrow and based on his clinical progress and we will make further recommendations. In the same time continue with pain management. Patient is been using Dilaudid 0.5 mg twice daily. We will add [place] 10 mg and encourage patient to use oral pain medication Discontinue morphine as patient does not use it for more than 24 hours. Discontinue IV fluids 06/24/2020 Patient still complaining of from left upper extremity pain which wakes him this morning from pain. His pain is from the shoulder to left elbow and he feels his left upper extremity is burning and he has some weakness with inability to abduct the left upper extremity. Also has some tenderness at the base of the neck posteriorly, but no significant neck pain Orthopedic team evaluated the patient and cervical x-rays were suspicious for cervical degenerative disease, see the detail of the image reports. And they signed off however because of persistent symptoms I to the patient and he agrees to do MRI of the cervical spine and left shoulder. Patient states that he had MRIs before the 80s and that he is not claustrophobic and he denied any pacemaker or any metal in his body. pt is solu-Medrol 80 mg 3 times a day added by orthopedic team Cardiology team signed off with echocardiogram showing ejection fraction 55-60% with severe LVH, metoprolol and Norvasc added to the patient regiment. Blood pressure this morning is 138/92 and 166/97 Review of Systems CONSTITUTIONAL: No fever, no malaise, no fatigue. HEENT: No recent visual problems or hearing problems. Denied any sore throat. CARDIOVASCULAR: No orthopnea, PND, no palpitations, no syncope. PULMONARY: No shortness of breath, no cough, no hemoptysis. GASTROINTESTINAL: No diarrhea, no nausea, no vomiting, no abdominal pain. Normoactive bowel sounds. HEMATOLOGICAL: Denies any bleeding or petechiae. Active Medications Generic Name Dose Route Start Last Admin Trade Name Freq PRN Reason Stop Dose Admin Acetaminophen 650 mg 06/22/20 12:56 06/22/20 13:03 Acetaminophen Tab 325 Mg Tab PO 650 mg Q6HR PRN Administration Fever and/ or Pain Hydrocodone Bitart/Acetaminophen 1 each 06/23/20 23:17 06/24/20 07:41 Hydrocodone/Apap 10-325mg 1 Each Tab PO 1 each Q6H PRN Administration Pain Amlodipine Besylate 10 mg 06/24/20 09:00 06/24/20 07:34 Amlodipine 10 Mg Tab PO 10 mg DAILY LOLA Administration Calcium Carbonate/Glycine 1,000 mg 06/22/20 22:46 06/23/20 11:10 Calcium Carbonate 500 Mg Chewable PO 1,000 mg QID PRN Administration Heartburn Cyclobenzaprine HCl 5 mg 06/23/20 23:30 06/24/20 07:34 Cyclobenzaprine 5 Mg Tab PO 5 mg TID LOLA Administration Hydralazine HCl 25 mg 06/23/20 23:21 Hydralazine Hcl 25 Mg Tab PO TID PRN Blood Pressure - High Hydromorphone HCl 0.5 mg 06/22/20 12:56 06/23/20 23:41 Hydromorphone 0.5 Mg/0.5 Ml Syringe IVP 0.5 mg Q3HR PRN Administration pain of 9 or 10 Methylprednisolone Sodium Succinate 80 mg 06/22/20 16:00 06/24/20 07:34 Methylprednisolone Sod Succi 125 Mg/2 Ml Vial IV 80 mg Q8HR LOLA Administration Metoprolol Succinate 25 mg 06/23/20 11:15 06/24/20 07:34 Metoprolol Succinate (Er) 25 Mg Tab.Er.24h PO 25 mg DAILY LOLA Administration Nitroglycerin 0.4 mg 06/22/20 00:12 Nitroglycerin Sl Tabs 0.4 Mg Tab SUBLINGUAL Q5M PRN Chest Pain Polyethylene Glycol 17 gm 06/23/20 18:00 06/24/20 07:48 Polyethylene Glycol 3350 17 Gm Powd.Pack PO 17 gm DAILY LOLA Administration Sertraline HCl 100 mg 06/23/20 09:00 06/24/20 07:34 Sertraline 100 Mg Tab PO 100 mg DAILY LOLA Administration Objective - Vital Signs Vital signs: Vital Signs Temp 97.4 F L 06/24/20 06:54 Pulse 79 06/24/20 06:54 Resp 18 06/24/20 06:54 BP 166/97 06/24/20 06:54 Pulse Ox 97 06/24/20 06:54 Intake & Output 06/23/20 06/24/20 06/24/20 18:59 06:59 18:59 Intake Total 1660 480 240 Balance 1660 480 240 Intake: Intake, IV Titration 700 Amount Sodium Chloride 0.9% 1, 700 000 ml @ 100 mls/hr IV . Q10H LOLA Rx#:[id number] Oral 960 480 240 Other: # Voids 3 1 - Exam GENERAL: The patient is alert and oriented x3, not in any acute distress. Well developed, well nourished. HEENT: Pupils are round and equally reacting to light. EOMI. No scleral icterus. No conjunctival pallor. Normocephalic, atraumatic. No pharyngeal erythema. No thyromegaly. CARDIOVASCULAR: S1 and S2 present. No murmurs, rubs, or gallops. PULMONARY: Chest is clear to auscultation, no wheezing or crackles. ABDOMEN: Soft, nontender, nondistended, normoactive bowel sounds. No palpable organomegaly. -MUSCULOSKELETAL: No joint swelling or deformity. Left upper extremity pain and tenderness and inability to abduct the left arm, he can move his left upper extremity more but still motor examination of the left upper extremity is limited due to pain. Clean and healing wound with sutures in the palm of his l eft hand EXTREMITIES: No cyanosis, clubbing, or pedal edema. NEUROLOGICAL: Gross neurological examination did not reveal any focal deficits. SKIN: No rashes. No petechiae - Labs CBC & Chem 7: 06/21/20 23:07 06/21/20 23:07 Assessment and Plan Assessment: Left arm/shoulder pain and numbness, inability to abduct the left arm mostly related to left cervical radiculopathy as per orthopedic team . However we'll do MRI of the left shoulder and cervical spine Chest pain. Resolved cardiology team signed off Status post release of Dupuytren's contracture of the left hand with Dr. Sahil Gee. Multiple liver cysts Plan: This is a pleasant 64 years old male who presents because of left shoulder pain, numbness and difficulty in. Follow-up MRI of the left shoulder and cervical spine. Continue with steroids at a orthopedic team. Continue with flexari Orthopedic and cardiology teams signed off. Pain management.Add flexor Labs and medication were reviewed.. Continue same treatment. Continue with symptomatic treatment. Resume home medication. Monitor lytes and vitals. DVT and GI prophylaxis. Further recommendations depends on the clinical course of the patient DVT prophylaxis: Subcutaneous heparin GI Prophylaxis: Pepcid Prognosis is guarded
[2020-06-24 13:16] LABS: HCT 44.6 % (39.0-53.0); HGB 14.5 gm/dL (13.0-17.5); MCH 29.8 pg (25.0-35.0); MCHC 32.5 g/dL (31.0-37.0); MCV 91.7 fL (80.0-100.0); Mean Platelet Volume 6.6; Platelet Count 237 k/uL (150-450); RBC 4.86 m/uL (4.30-5.90); RDW 14.1 % (11.5-15.5); WBC 19.4 k/uL (3.8-10.6)
[2020-06-24 14:31] LABS: ALT 23 U/L (4-49); AST 29 U/L (17-59); African American GFR (CKD) >90 (>60 ml/min/1.73 sqM); Albumin 3.7 g/dL (3.5-5.0); Albumin/Globulin Ratio 1.4; Alkaline Phosphatase 42 U/L (38-126); Anion Gap 6 mmol/L; Blood Urea Nitrogen 24 mg/dL (9-20); Carbon Dioxide 25 mmol/L (22-30); Chloride 105 mmol/L (98-107); Globulin 2.7 g/dL; Glucose 117 mg/dL (74-99); Non-African American GFR(CKD) >90 (>60 ml/min/1.73 sqM); Potassium 4.3 mmol/L (3.5-5.1); Sodium 136 mmol/L (137-145); Total Bilirubin 0.5 mg/dL (0.2-1.3); Total Protein 6.4 g/dL (6.3-8.2)
--- NOTE | 2020-06-24 15:10 | P.PN ---
Progress Note - Text Progress Note Date: 06/23/20 Cervical x-rays: The patient's cervical x-rays are reviewed which showed multilevel degenerative disc disease and facet arthropathy. Multiple levels of foraminal stenosis, particularly on the left. No acute fractures identified.
[2020-06-24] MEDS: CALCIUM CARBONATE 500 MG CHEWABLE PO PRN (15:54)
--- NOTE | 2020-06-24 15:54 | MR ---
EXAMINATION TYPE: MR cervical spine wo con DATE OF EXAM: 06/24/2020 COMPARISON: None HISTORY: Neck and left shoulder pain, burning down left arm since having hand surgery on 18. CONTRAST: Performed utilizing 0 mL intravenous Gadavist gadolinium contrast. TECHNIQUE: Multiplanar multiecho imaging on a 3.0 Missy magnet is performed through the cervical spin e. FINDINGS: The craniovertebral junction is normal. Vertebral body alignment is normal. Signal withi n the spinal cord is normal. C7-T1: No focal disc herniation or significant disc bulge is evident. No spinal canal stenosis or n eural foraminal stenosis is present. C6-7: Mild disc bulge may be present. No cord contact is evident. No spinal canal stenosis or neural foraminal stenosis present.. C5-6: Mild disc bulge is present with anterior thecal sac flattening. No spinal canal stenosis is pre sent. Uncovertebral joint hypertrophy may be contributing to mild bilateral foraminal narrowing.. C4-5: There is a small central protrusion with mild anterior thecal sac compression. No cord contact or spinal canal stenosis present. Neural foramen are patent. Subligamentous disc extension may extend superiorly.. C3-4: Mild disc bulge has mild anterior thecal sac compression. This comes in close approximation wit h the spinal cord. No spinal canal stenosis is present. Mild right foraminal narrowing is present.. C2-3: No focal disc herniation or significant disc bulge is evident. No spinal canal stenosis or timbo ral foraminal stenosis is present. IMPRESSIONS: 1. Mild disc bulging present C3-4 through C6-7 without cord contact or spinal canal stenosis. 2. Uncovertebral joint hypertrophy with some mild foraminal narrowing greatest at C5-6
--- NOTE | 2020-06-24 16:13 | MR ---
EXAMINATION TYPE: MR shoulder LT wo con DATE OF EXAM: 06/24/2020 COMPARISON: Left shoulder 06/21/2020 HISTORY: Neck and left shoulder pain, burning down left arm since having hand surgery on 06-11. TECHNIQUE: Multiplanar, multisequence imaging of the left shoulder is performed without contrast. FINDINGS: Rotator Cuff: There is a partial full-thickness tear present at the rotator cuff insertion involving the supraspinatus tendon, the rotator cuff is in attenuated anteriorly, no significant retraction. Acromioclavicular Joint: Arthropathy changes present causing some aspect on the musculotendinous junc tion of supraspinatus, there is a distal acromial spur. Glenohumeral Joint: Joint space loss is present, there is remodeling of the humeral head and bony gle noid, subchondral geode formation is present, loss of articular cartilage Labrum: The labrum appears grossly intact given limitation of non-arthrogram study. Biceps Tendon: The long head of biceps is in normal location within bicipital groove. Bone marrow signal: There are pseudocysts present within the humeral head, cystic geode formation als o present at the acromioclavicular joint as well as within the bony glenoid Other: Fluid signal is present along the musculotendinous junction of subscapularis. IMPRESSION: There is a rotator cuff tear, correlate for impingement, there is osteoarthritic change in the acromi oclavicular joint and at the glenohumeral joint.
[2020-06-24] MEDS: HYDROmorphone 0.5 MG/0.5 ML SYRINGE IVP PRN (21:20)
[2020-06-25] MEDS: HYDROmorphone 0.5 MG/0.5 ML SYRINGE IVP PRN ×7 (00:04→23:13)
[2020-06-25] MEDS: HYDROcodone/APAP 10-325MG 1 EACH TAB PO PRN ×3 (03:30→18:15)
[2020-06-25] MEDS ORDERED: HYDROmorphone 0.5 MG/0.5 ML SYRINGE IVP STA (03:48)
[2020-06-25] MEDS: METOPROLOL SUCCINATE (ER) 25 MG TAB.ER.24H PO SCH (07:58)
[2020-06-25] MEDS: SERTRALINE 100 MG TAB PO SCH (07:58)
[2020-06-25] MEDS: predniSONE 20 MG TAB PO SCH (07:58)
[2020-06-25] MEDS: CYCLOBENZAPRINE 5 MG TAB PO SCH ×3 (07:58→21:56)
[2020-06-25] MEDS: polyethylene glycoL 3350 17 GM POWD.PACK PO SCH (07:58)
[2020-06-25] MEDS: amLODIPine 10 MG TAB PO SCH (07:59)
--- NOTE | 2020-06-25 09:20 | P.PN ---
Subjective Progress Note Date: 06/25/20 Principal diagnosis: Cervical radiculopathy left upper extremity. Status post Dupuytren release left hand. Left shoulder pain. This is a 64-year-old male who presented to the emergency department with chest pain and left arm pain. He is approximately 2 weeks status post release of Dupuytren's contracture of the left hand with Dr. Sahil Gee. He states that for the past week or 2 he has had pain radiating down his left shoulder and arm with some numbness to the upper arm.He does state that he has history of cervical spine issues in the distant past that were treated by his chiropractor.He denies any recent injury or trauma. He states the pain radiates from the side of his neck down his arm into the wrist. He has no complaints regarding the surgical site. He reports no fever or chills. 06/23/2020: The patient states that his neck and arm pain are slightly improved today. He has been wearing his cervical collar. He has no new complaints or concerns today. Vital signs are stable. 06/25/2020: The patient underwent MRI of the cervical spine and left shoulder. Cervical MRI shows diffuse degenerative disc disease with mild disc bulging at multiple levels. Some foraminal stenosis noted. No central spinal stenosis or evidence of myelopathic cord changes. MRI of the shoulder reveals degenerative arthritis and a partial thickness rotator cuff tear. The patient continues to have pain from the neck down the arm. He states he does continue to have nu mbness to the lateral arm down to the elbow. The numbness and tingling in his fingers has improved. He's had no fever or chills. Vital signs are stable. Objective - Vital Signs Vital signs: Vital Signs Temp 98 F 06/25/20 07:00 Pulse 75 06/25/20 08:00 Resp 22 06/25/20 08:00 BP 196/116 06/25/20 07:00 Pulse Ox 94 L 06/25/20 07:00 Intake & Output 06/24/20 06/25/20 06/25/20 18:59 06:59 18:59 Intake Total 640 400 318 Balance 640 400 318 Intake: Oral 640 400 318 Other: Voiding Method Toilet Toilet # Voids 1 3 - Exam This is a pleasant 64-year-old male in no acute distress. He is alert and oriented at this time. Exam of the head neck reveal no obvious deformity. He is currently wearing his soft cervical collar. He does have limited range of motion of the cervical spine particularly rotation and side bend to the left. There is limitation in cervical extension as well. He has limited active motion of the Left shoulder. Passively I can forward flex him to about 90 and abduction to about 80 when he begins having pain. Pain is located to the lateral aspect of the shoulder and upper arm. He has full elbow and wrist mo tion. The incision to the left palm is healing well. There is no erythema, minimal swelling and no sign of infection. His finger motion is significantly improved. He has full extension of the thumb, index, middle and ring fingers. Near full extension of the little finger. Finger strength is good. Mild weakness with thumb extension and finger extension. Neurovascular status to the upper extremities grossly intact. - Labs CBC & Chem 7: 06/24/20 13:06 06/24/20 13:06 Labs: Abnormal Lab Results - Last 24 Hours (Table) 06/24/20 06/24/20 Range/Units 13:06 13:06 WBC 19.4 H (3.8-10.6) k/uL Sodium 136 L (137-145) mmol/L BUN 24 H (9-20) mg/dL Glucose 117 H (74-99) mg/dL Assessment and Plan (1) Left cervical radiculopathy Current Visit: Yes Status: Acute Code(s): M54.12 - RADICULOPATHY, CERVICAL REGION SNOMED Code(s): 87993081928610089 (2) Dupuytren's contracture of left hand Current Visit: Yes Status: Acute Code(s): M72.0 - PALMAR FASCIAL FIBROMATO SIS [DUPUYTREN] SNOMED Code(s): 978392301 (3) Atypical chest pain Current Visit: Yes Status: Acute Code(s): R07.89 - OTHER CHEST PAIN SNOMED Code(s): 536747816 Plan: The clinical findings are discussed with the patient. His incision is healing very well. There are no postoperative concerns regarding the hand. We discussed the MRI findings. Dr. Carrillo has been consulted for evaluation of his cervical spine. It is discussed with the patient that his rotator cuff tear is most likely a chronic finding although possibly recently aggravated causing some acute on chronic issues. It is discussed with the patient that there is most likely a cervical contribution to his arm symptoms, particularly the numbness that he is having. Dr. Carrillo will see the patient today. I have consulted physical therapy as well. We will continue to follow and await further recommendations.
[2020-06-25] MEDS ORDERED: ALPRAZolam 0.25 MG TAB PO STA (09:54)
--- NOTE | 2020-06-25 12:29 | P.CNOR ---
History of Present Illness - HPI Consult date: 06/25/20 Consult reason: other (Left upper extremity pain) History of present illness: Patient is a 64-year-old male who seen and examined today in observation at bedside in regards to his left upper extremity pain. He has been having pain in his left arm for the past 2 weeks since approximately severe 18. He says that he had surgery on his left hand for Dupuytren's contracture and feels that he has had significant pain since then. He says the pain is centered around his left shoulder. He also has tingling and numbness around his left forearm and hand that travels up his arm. Because over his entire hand. He denies any specific weakness but he is having difficulty using his left upper extremity due to his pain. He says his shoulder feels weak when he tries to lift it up over his head and over shoulder level. He says his right arm is doing well. His neck does not give him significant pain. She denies any fevers or chills. She denies any specific problems with his incision sites at his hand. He denies any prior problems with his left arm or shoulder. He denies any prior problems with his neck. Review of Systems As stated per HPI. Denies any chest pain shortness of breath. Denies any fevers chills. Past Medical History Past Medical History: Fibromyalgia, Neurologic Disorder, Osteoarthritis (OA), Sleep Apnea/CPAP/BIPAP Additional Past Medical History / Comment(s): See Dr Greene H&P, states hyp oglycemia, No cpap, wears mouthgaurd, chronic hip & back pain, migraines, hx ulcers History of Any Multi-Drug Resistant Organisms: None Reported Past Surgical History: Hernia Repair, Orthopedic Surgery Additional Past Surgical History / Comment(s): right hip surg,rt hand,rt shoulder, umbilical hernia repair, sx for "burst ulcer", COLONOSCOPY Past Anesthesia/Blood Transfusion Reactions: Previous Problems w/ Anesthesia Additional Past Anesthesia/Blood Transfusion Reaction / Comm: WAKES UP DURING PROCEDURE Past Psychological History: Anxiety, Depression Smoking Status: Former smoker Past Alcohol Use History: None Reported Additional Past Alcohol Use History / Comment(s): smoked 1ppd from age [age] Past Drug Use History: None Reported - Past Family History Sister(s) Family Medical History: Cancer Additional Family Medical History / Comment(s): COLON Mother Family Medical History: Cancer Additional Family Medical History / Comment(s): LUNG Medications and Allergies Home Medications Medication Instructions Recorded Confirmed Type ZOLMitriptan [Zomig] 5 mg PO DAILY PRN 11/08/13 06/21/20 History Meloxicam 7.5 mg PO DAILY 08/24/17 06/21/20 History Sertraline [Zoloft] 100 mg PO DAILY 06/21/20 06/21/20 History predniSONE [Deltasone] 20 mg PO DAILY #24 tab 06/22/20 Rx Famotidine [Pepcid] 20 mg PO BID #30 tablet 06/23/20 Rx Gabapentin [Neurontin] 300 mg PO BID #60 cap 06/25/20 Rx Allergies Allergy/AdvReac Type Severity Reaction Status Date / Time cephalexin monohydrate AdvReac yeast in Verified 06/21/20 22:18 [From Keflex] mouth polyethylene glycol AdvReac Abdominal Verified 06/21/20 22:18 Pain Physical Examination Osteopathic Statement: *. No significant issues noted on an osteopathic structural exam other than those noted in the History and Physical/Consult. - C Spine: dermatomal strength & reflexes left Shoulder strength: flexion: 4/5 (At his neck is nontender to palpation. He holds his left shoulder higher than his right. He has positive impingement signs. He has some drop arm testing with resistance. His hand incision sites are clean and dry and appear to be healing well. There is no erythema area) Shoulder strength: extension: 4/5 (his compartments in his left upper extremity are intact. There is no hyperreflexia. His biceps and triceps appear strong with 5 out of 5 strength. His right upper extremity has full active and passive range of motion.) Results - Labs Labs: Abnormal Lab Results - Last 24 Hours (Table) 06/24/20 06/24/20 Range/Units 13:06 13:06 WBC 19.4 H (3.8-10.6) k/uL Sodium 136 L (137-145) mmol/L BUN 24 H (9-20) mg/dL Glucose 117 H (74-99) mg/dL H & H 06/21/20 06/24/20 Range/Units 23:07 13:06 Hgb 15.7 14.5 (13.0-17.5) gm/dL Hct 46.7 44.6 (39.0-53.0) % Coagulation 06/21/20 Range/Units 23:07 INR 0.9 (<1.2) Result Diagrams: 06/24/20 13:06 06/24/20 13:06 - Diagnostic results Shoulder MRI: report reviewed (Shoulder MRI report is reviewed which shows some chronic changes at his rotator cuff. There is no dislocation there is no appearance of acute injury.) Cervical MRI with/without contrast: report reviewed, image reviewed (MRI of the cervical spine is reviewed. There is some degenerative changes at C5 6 and C6 7 with some foraminal narrowing at C5 6. There is no significant central stenosis. There is no specific herniated disc. There is no acute herniation or bony change.) Assessment and Plan Assessment: Left upper extremity pain 2 weeks status post left hand upper extremity Dupytrens surgery Chronic left shoulder rotator cuff changes Mild to moderate degenerative disc disease at cervical spine without specific herniation Plan: Left upper extremity pain 2 weeks status post left hand upper extremity Dupytrens surgery Chronic left shoulder rotator cuff changes Mild to moderate degenerative disc disease at cervical spine without specific h erniation The patient is having severe pain in his left shoulder and upper extremity. It is difficult to determine the specific etiology. I do not see a specific cause or herniation from his cervical spine. There is no new herniation and I do not think that surgical intervention would offer him much benefit. He is having some diffuse tingling and numbness at his left upper extremity without evidence of upper motor neuron signs. He could potentially have some benefit fit with an epidural steroid injection at his cervical spine and we'll have pain management evaluate him for this. I do not plan any surgical intervention for his cervical spine at this point. From an orthopedic spine standpoint is okay for him to be discharged when he is okay from other services. In terms of his left shoulder there are some chronic rotator cuff changes. This does not appear to be an acute tear. He would be best served with continued conservative management and physical therapy. If that is not improving he could consider the possibility of further intervention down the line but he should do a significant trial for weeks to months of conservative treatment before considering this. I explained this to him at length. He did have a regional block at the time of his surgery 2 weeks ago. He could be having some irritation along his nerves from this. He could have some benefit with Neurontin and we will provide him up for prescription and for this. In terms of his pain management he should continue this through his primary care physician or the pain management service. From a cervical spine standpoint we can follow him up as outpatient on an as- needed basis.
[2020-06-25] MEDS: ACETAMINOPHEN TAB 500 MG TAB PO PRN (14:08)
--- NOTE | 2020-06-25 14:14 | P.PAINCN ---
History of Present Illness - Reason for Consult Consult date: 06/25/20 - History of Present Illness This is 64 years old male, with a chief complaint of severe neck pain with radiation to the left upper extremity, started approximately 2 weeks ago, one day after he had Dupuytren's contracture ( left Hand ), next day after the surgery he started having severe left-sided neck pain, with radiation to the left shoulder and to the left upper extremity,, the pain associated with tingling and numbness sensation in the left arm, he denies any fever or chills, he denies any change in bowel movements or urination, patient currently on [place] 10/325 when necessary, and Dilaudid 0.5 mg every 3 hours when necessary, and Flexeril 5 mg 3 times a day, and Neurontin 300 mg twice a day and he continued to have severe pain. Past Medical History Past Medical History: Fibromyalgia, Neurologic Disorder, Osteoarthritis (OA), Sleep Apnea/CPAP/BIPAP Additional Past Medical History / Comment(s): See Dr Greene H&P, states hypoglycemia, No cpap, wears mouthgaurd, chronic hip & back pain, migraines, hx ulcers History of Any Multi-Drug Resistant Organisms: None Reported Past Surgical History: Hernia Repair, Orthopedic Surgery Additional Past Surgical History / Comment(s): right hip surg,rt hand,rt shoulder, umbilical hernia repair, sx for "burst ulcer", COLONOSCOPY Past Anesthesia/Blood Transfusion Reactions: Previous Problems w/ Anesthesia Additional Past Anesthesia/Blood Transfusion Reaction / Comm: WAKES UP DURING PROCEDURE Past Psychological History: Anxiety, Depression Smoking Status: Former smoker Past Alcohol Use History: None Reported Additional Past Alcohol Use History / Comment(s): smoked 1ppd from age [age] Past Drug Use History: None Reported - Past Family History Sister(s) Family Medical History: Cancer Additional Family Medical History / Comment(s): COLON Mother Family Medical History: Cancer Additional Family Medical History / Comment(s): LUNG Medications and Allergies Home Medications Medication Instructions Recorded Confirmed Type ZOLMitriptan [Zomig] 5 mg PO DAILY PRN 11/08/13 06/21/20 History Meloxicam 7.5 mg PO DAILY 08/24/17 06/21/20 History Sertraline [Zoloft] 100 mg PO DAILY 06/21/20 06/21/20 History predniSONE [Deltasone] 20 mg PO DAILY #24 tab 06/22/20 Rx Famotidine [Pepcid] 20 mg PO BID #30 tablet 06/23/20 Rx Gabapentin [Neurontin] 300 mg PO BID #60 cap 06/25/20 Rx Allergies Allergy/AdvReac Type Severity Reaction Status Date / Time cephalexin monohydrate AdvReac yeast in Verified 06/21/20 22:18 [From Keflex] mouth polyethylene glycol AdvReac Abdominal Verified 06/21/20 22:18 Pain Physical Exam Vitals: Vital Signs Temp Pulse Resp BP BP Pulse Ox 06/25/20 13:45 75 22 06/25/20 08:00 75 22 06/25/20 07:00 98 F 75 22 196/116 94 L 06/25/20 00:13 97.8 F 90 16 153/88 96 06/24/20 20:00 98.4 F 88 16 162/96 95 06/24/20 14:28 98.3 F 98 16 149/81 98 06/24/20 14:00 18 Intake and Output 06/24/20 06/25/20 06/25/20 22:59 06:59 14:59 Intake Total 800 318 Balance 800 318 Intake: Oral 800 318 Other: Voiding Method Toilet Toilet # Voids 2 3 4 Physical Examinations : -Constitutiona : Cooperative , not in acute distress . -HEENT : nech : supple , no Lymphadenopathy , normal thyroid size . : eyes : no ptosis , no icterus, no photophobia . - neurologic : Cranial nerve II to XII intact , no focal neurological deffecit . -psychatric : alert , oriented X 3 , appropriate affect , intact judgment and insight . -Lymphatic : no Lymphadenopathy . - musculoskeltal : Cervical Spine motor stregnth in the deltoid and biceps, 5/5 right side , 4/5 Left side motor stregnth biceps and the wrist extensors 5/5 right side ,4/5 left side . motor stregnth in the triceps muscle . 5/5 Right side , 4/5 Left side . cervical facet loading test: Positive Bilaterally Spurling test= positive left. Neck distraction test= positive left. Elissa sign= positive left . Multiple trigger point identified in the left-sided (cervical paraspinal muscle, trapezius, rhomboid muscle, supr ascapular, Pectoralis major ) Left shoulder = severe pain with active and passive movement with abduction, and abduction of the left shoulder Lumber spine moter stegnth lower extremities ,thigh and legs 5/5 Right side , 5/5 Left side Results CBC & Chem 7: 06/24/20 13:06 06/24/20 13:06 Labs: Abnormal Lab Results - Last 24 Hours (Table) 06/24/20 Range/Units 13:06 Sodium 136 L (137-145) mmol/L BUN 24 H (9-20) mg/dL Glucose 117 H (74-99) mg/dL Comments: MRI of the left shoulder= tear left rotator cuff, osteoarthritis at the before meals joint and glenohumeral head. MRI of the cervical spine degenerative changes at C5 6 and C6 7 Assessment and Plan Plan: Assessment and plan=1-cervical radiculopathy. 2-cervical degenerative disc disease. 3-left shoulder rotator cuff tear. 4-myofascial pain syndrome and cervical paraspinal muscles and left pectoralis major muscles. Patient could benefit from cervical epidural steroid injection at C67 or C7-T1 (left paramedian approach ). Patient could benefit from trigger point injections left-sided cervical paraspinal muscles, and left pectoralis major muscle. ( it will be done tommorrow 06/26 ). Patient should continue his current medication, norco ,, Flexeril and Neurontin Time with Patient: Greater than 30 PQRS Measure Charge Sheet PQRS Narrative: Smoking Status Former smoker Do You Want the Pneumonia Vaccine Up to Date Vaccine AT THIS TIME? Blood Pressure [Left Arm] 196/116 Blood Pressure [Right Arm] 153/88 Blood Pressure 176/105 Pain Intensity [Left Shoulder] 7 Pain Intensity 7 Pain Scale Used Numeric (1 - 10) Scale Used Numeric (1 - 10) Home Medications: Ambulatory Orders ZOLMitriptan [Zomig] 5 mg PO DAILY PRN 11/08/13 Meloxicam 7.5 mg PO DAILY 08/24/17 Sertraline [Zoloft] 100 mg PO DAILY 06/21/20 predniSONE [Deltasone] 20 mg PO DAILY #24 tab 06/22/20 Famotidine [Pepcid] 20 mg PO BID #30 tablet 06/23/20 Gabapentin [Neurontin] 300 mg PO BID #60 cap 06/25/20
[2020-06-25] MEDS ORDERED: cloNIDine HCL 0.2 MG TAB PO PRN (16:48)
[2020-06-25] MEDS: GABAPENTIN 300 MG CAP PO SCH (21:56)
[2020-06-26] MEDS: HYDROcodone/APAP 10-325MG 1 EACH TAB PO PRN ×2 (00:26→08:22)
[2020-06-26] MEDS: HYDROmorphone 0.5 MG/0.5 ML SYRINGE IVP PRN (02:25)
[2020-06-26] MEDS: ACETAMINOPHEN TAB 500 MG TAB PO PRN (02:26)
[2020-06-26] MEDS ORDERED: HYDROmorphone 1 MG/ML 1 ML SYRINGE IVP PRN (03:21)
[2020-06-26] MEDS: predniSONE 20 MG TAB PO SCH (07:07)
[2020-06-26] MEDS: amLODIPine 10 MG TAB PO SCH (07:07)
[2020-06-26] MEDS: SERTRALINE 100 MG TAB PO SCH (07:07)
[2020-06-26] MEDS: METOPROLOL SUCCINATE (ER) 25 MG TAB.ER.24H PO SCH (07:07)
[2020-06-26] MEDS: CYCLOBENZAPRINE 5 MG TAB PO SCH (07:07)
[2020-06-26] MEDS ORDERED: hydrALAZINE HCL 20 MG/ML 1 ML VIAL IVP STA (07:48)
[2020-06-26] MEDS ORDERED: hydrALAZINE HCL 50 MG TAB PO PRN (07:50)
[2020-06-26] MEDS ORDERED: LACTATED RINGERS 1,000 ML IV ONE (09:32)
[2020-06-26] MEDS: GABAPENTIN 300 MG CAP PO SCH (09:51)
[2020-06-26] MEDS ORDERED: hydrALAZINE HCL 20 MG/ML 1 ML VIAL IVP ONE (09:51)
[2020-06-26] MEDS ORDERED: MIDAZOLAM 2 MG/2 ML VIAL ONE (10:30)
[2020-06-26] MEDS ORDERED: DEXAMETHASONE SOD PHOSPHATE 10 MG/ML 1 ML VIAL ONE (10:30)
[2020-06-26] MEDS ORDERED: ROPIVACAINE 5MG/ML 20ML VIAL ONE (10:30)
[2020-06-26] MEDS ORDERED: IOPAMIDOL M200 10 ML VIAL ONE (10:30)
[2020-06-26] MEDS ORDERED: fentaNYL (PF) 50 MCG/ML 2 ML AMP ONE (10:30)
--- NOTE | 2020-06-26 10:58 | P.PCN ---
Date of Procedure: 06/26/20 Procedure(s) Performed: . PROCEDURE 1. Cervical epidural steroid injection under fluoroscopic guidance, C7-T1 (fluoroscopy images available in the radiology department ) 2. Cervical epidurogram. 3. Trigger point injection will assess cervical paraspinal muscles,4 trigger points injected left side cervical paraspinal ,one trigger point injection in the left pectoralis major muscle PREOPERATIVE DIAGNOSIS: 1- Cervical Degenerative Disc Diseases 2- Cervical radiculopathy., 3-myofascial pain syndrome and cervical spinal muscles, and pectoralis muscle 4-left shoulder rotator cuff tear POSTOPERATIVE DIAGNOSIS: same as pre op diagnosis ANESTHESIA: Monitored anesthesia care as per anesthesia department.. EBL 0 PROCEDURE INDICATION: The patient with neck pain and radiculitis unresponsive to conservative treatment consents for procedure. PROCEDURE DESCRIPTION / TECHNIQUE: The patient was seen and identified in the preoperative area. Risks, benefits, complications, including but not limited to infections ,bleeding , allergic reactions to the medications ,and not complete pain releife, and alternatives were discussed with the patient, the patient agreed to proceed with the procedure and signed the consent. Patient was taken to the OR and time out was completed. The patient was placed in the prone position on the procedure table. A pillow was placed under the patients chest to increase the cervical interlaminar space. The cervical area was prepped and draped in the usual sterile fashion. Vital signs were closely monitored during the procedure. Conscious sedation was used during the procedure to decrease patients anxiety. Using anterior-posterior fluoroscopy, the C7-T1 interlaminar space was identified and the skin over this site was marked and then infiltrated with 1% lidocaine subcutaneously. Subsequently, a 20-gauge 3-1/2-inch Tuohy epidural needle was inserted and advanced toward the epidural space by means of the ``hanging-drop technique and guided by AP and lateral fluoroscopy. The correct needle position in the epidural space was verified with the injection of 2 mL of the water soluble contrast dye [id number]-[id number] and observing an excellent epidurogram with the epidural spread of the dye, after negative aspiration for blood and CSF and in the absence of paresthesias. Again after negative aspiration, mixture containing 20 mg Dexamethasone and 2 ml of preservative- free normal saline injected and a washout of epidurogram was seen. Needle was withdrawn intact. and a trigger point injection done under sterile technique , using 25-gauge needle each of the trigger point injected with ropivacaine 0.5% 2 mL using 25- gauge needle , injections and after negative aspiration under was no paresthesia during the injection , for trigger point injected in the left side cervical paraspinal muscles , and one trigger point injected on the left side pectoralis major muscle , patient tolerated the procedure well without any complications Complications= none. Disposition= patient was placed in supine position and transferred to the recovery room area in stable condition and there was no evidence of upper or lower extremity motor or sensory deficit after the procedure patient was discharged from recovery room after discharge criteria met and home discharge instructions was given by the staff and patient will follow with the pain clinic in 2-4 weeks
[2020-06-26 11:12] VITALS: RESP 15; TEMP 97.6
[2020-06-26] MEDS: polyethylene glycoL 3350 17 GM POWD.PACK PO SCH (11:15)
[2020-06-26 12:16] VITALS: BP 119/79; PULSE 102
--- NOTE | 2020-06-26 15:55 | FL ---
Fluoroscopy HISTORY: Pain 3 seconds fluoroscopy time supplied to the referring clinician. 1 intraoperative C-arm images docume nt the procedure. See dictated report from anesthesia.
--- NOTE | 2020-06-26 16:59 | P.DS ---
Providers Date of admission: 06/24/20 10:00 Expected date of discharge: 06/26/20 Attending physician: Melissa Schulz Consults: 06/22/20 00:12 Consult Physician Routine Consulting Provider: Rudi Perales Consult Reason/Comments: postOp pain Do you want consulting provider notified?: Yes Primary care physician: Michoacano Allen Hospital Course: Final diagnosis Left arm/shoulder pain and numbness, inability to abduct the left arm mostly related to left cervical radiculopathy as per orthopedic team Chest pain. Resolved Cervical degenerative disc disease, cervical radiculopathy Left shoulder rotator cuff tear as noted on MRI Status post release of Dupuytren's contracture of the left hand with Dr. Sahil Gee. Multiple liver cysts GI Prophylaxis DVT prophylaxis Discharge disposition Patient is being discharged in a stable condition with guarded prognosis to home. Patient will follow-up with Dr. Michoacano Allen in the outpatient setting upon discharge. Patient also instructed to follow-up with Dr. Carrillo orthopedic services, and pain management in the outpatient setting. Patient will continue with redness on taper, reduced dosage of Neurontin, and [place] and will be following up with pain management outpatient. Total time taken is greater than 35 minutes. Hospital course This is a pleasant 64 years old male with past medical history of hyper lipidemia with a right-sided breast cancer with metastasis since April 2020. Chronic low back pain. Fibromyalgia, osteoarthritis Patient presents because of the left shoulder and arm pain radiating all the way down and to the chest around the left shoulder but no neck pain, associated with numbness of the left upper extremity and inability to abduct the left upper extremity due to excoriation pain Patient himself does not think his pain is from his chest. He denies dyspnea or coughing or change in urine or bowel habits or fever He is status post release of Dupuytren's contracture of the left hand with Dr. Sahil Gee. Vitas looks stable, blood pressure 177/95. Labs including CBC, BMP, INR are unremarkable. D-dimer is -0.5. Liver enzymes are not elevated. Troponins 3 are negative with less than 0.012. yap varus is not detected CT of the chest showing no PE. Multiple rounded low-density foci in the liver consistent with multiple cysts measuring up to 2.5 cm EKG showing normal sinus rhythm at [address]-T changes. Cardiology and orthopedic team were consulted from emergency room patient already been evaluated by orthopedic team and diagnosed him with left cervical radiculopathy 06/23/20 Patient states he has significant improvement in his left upper extremity pain and numbness are improving back custodial and he feels better but not completely resolved, he says that his pain significantly improved down to 3/10 at rest and goes to 7/10 with movement. With this significant pain in his left upper extremity, motor examination is limited as any movement is painful for the patient, however patient does not complain specifically from weakness rather he complains from pain and numbness. Also he has a sutured point in his left hand from a recent surgery for his Dupuytren's contracture of the left hand. Patient looks satisfied with improvement. However we will wait for orthopedic team final recommendation as they are following the case closely for this reason, Cervical spine x-rays showing degenerative disc disease and facet atrophy with multilevel foraminal encroachment and limitation involving various levels between C3 and C7, C8 report for detailed information currently orthopedic team recommending prednisone taper and physical therapy. And patient was started on high dose IV Solu-Medrol 80 mg every 8 hours. We will assess patient response tomorrow and based on his clinical progress and we will make further recommendations. In the same time continue with pain management. Patient is been using Dilaudid 0.5 mg twice daily. We will add N orco 10 mg and encourage patient to use oral pain medication Discontinue morphine as patient does not use it for more than 24 hours. Discontinue IV fluids 06/24/2020 Patient still complaining of from left upper extremity pain which wakes him this morning from pain. His pain is from the shoulder to left elbow and he feels his left upper extremity is burning and he has some weakness with inability to abduct the left upper extremity. Also has some tenderness at the base of the neck posteriorly, but no significant neck pain Orthopedic team evaluated the patient and cervical x-rays were suspicious for cervical degenerative disease, see the detail of the image reports. And they signed off however because of persistent symptoms I to the patient and he agrees to do MRI of the cervical spine and left shoulder. Patient states that he had MRIs before the 80s and that he is not claustrophobic and he denied any pacemaker or any metal in his body. pt is solu-Medrol 80 mg 3 times a day added by orthopedic team Cardiology team signed off with echocardiogram showing ejection fraction 55-60% with severe LVH, metoprolol and Norvasc added to the patient regiment. Blood pressure this morning is 138/92 and 166/97 06/26/2020 Patient was seen and evaluated by pain management underwent epidural injection of the cervical C7-T1 with fluoroscopic guidance along with a cervical epidurogram and trigger point injections. Patient will be following up with pain management along with orthopedic services in the outpatient setting. Patient was also on Neurontin 300mg of decrease the dose to 200 mg twice daily and continue with [place]. Patient will also continue with the prednisone taper upon discharge. Patient instructed to follow-up with primary care provider upon discharge along with other multiple medical consultations. patient denies any chest pain, shortness of breath, or palpitations. Patient is afebrile. No reports of nausea or vomiting noted and patient is tolerating diet. Patient will be discharged home today. Guarded prognosis. On exam vital signs are stable. Cardio S1, S2 are muffled. Respiratory system shows diminished breath sounds at the bases with no wheezing or rhonchi noted. Abdomen is soft and nontender. Nervous system shows no focal deficits. Please refer to medication reconciliation sheet for a list of medications. Patient Condition at Discharge: Stable Plan - Discharge Summary Discharge Rx Participant: No New Discharge Prescriptions: New predniSONE [Deltasone] 20 mg PO DAILY #24 tab Famotidine [Pepcid] 20 mg PO BID #30 tablet Cyclobenzaprine [Flexeril] 5 mg PO TID #12 tab polyethylene glycoL 3350 [Miralax] 17 gm PO DAILY 30 Days #30 powd.pack Multivitamin [Multivitamins Adult Gummies] 1 each PO DAILY 30 Days #30 tablet Gabapentin [Neurontin] 200 mg PO BID #16 cap HYDROcodone/APAP 10-325MG [[place] 10-325] 1 each PO Q6H PRN #12 tab PRN Reason: Pain amLODIPine [Norvasc] 10 mg PO DAILY 30 Days #30 tab Metoprolol Succinate (ER) [Toprol XL] 25 mg PO DAILY 30 Days #30 tab.er.24h Acetaminophen Tab [Tylenol] 1,000 mg PO Q6HR PRN tab PRN Reason: Fever And/ Or Pain Continue ZOLMitriptan [Zomig] 5 mg PO DAILY PRN PRN Reason: Migraine Headache Sertraline [Zoloft] 100 mg PO DAILY Discontinued Meloxicam 7.5 mg PO DAILY Discharge Medication List ZOLMitriptan [Zomig] 5 mg PO DAILY PRN 11/08/13 [History] Sertraline [Zoloft] 100 mg PO DAILY 06/21/20 [History] predniSONE [Deltasone] 20 mg PO DAILY #24 tab 06/22/20 [Rx] Famotidine [Pepcid] 20 mg PO BID #30 tablet 06/23/20 [Rx] Acetaminophen Tab [Tylenol] 1,000 mg PO Q6HR PRN tab 06/26/20 [Rx] Cyclobenzaprine [Flexeril] 5 mg PO TID #12 tab 06/26/20 [Rx] Gabapentin [Neurontin] 200 mg PO BID #16 cap 06/26/20 [Rx] HYDROcodone/APAP 10-325MG [[place] 10-325] 1 each PO Q6H PRN #12 tab 06/26/20 [Rx] Metoprolol Succinate (ER) [Toprol XL] 25 mg PO DAILY 30 Days #30 tab.er.24h 06/26/20 [Rx] Multivitamin [Multivitamins Adult Gummies] 1 each PO DAILY 30 Days #30 tablet 06/26/20 [Rx] amLODIPine [Norvasc] 10 mg PO DAILY 30 Days #30 tab 06/26/20 [Rx] polyethylene glycoL 3350 [Miralax] 17 gm PO DAILY 30 Days #30 powd.pack 06/26/20 [Rx] Follow up Appointment(s)/Referral(s): Ben Carrillo DO [Doctor of Osteopathic Medicine] - As Needed Lesley Mcdonald MD [STAFF PHYSICIAN] - 1 Week [facility], [NON-STAFF] - 1-2 Days Michoacano Allen MD [Primary Care Provider] - 1-2 days Sahil Gee DO [Doctor of Osteopathic Medicine] - 1 Week Ambulatory/Diagnostic Orders: Complete Blood Count w/diff [LAB.AMB] Time Frame: 2 Days, Location: None Selected Activity/Diet/Wound Care/Special Instructions: Hold Mobic while on Prednisone taper. Take prednisone as directed, take in am with food. Activity Limited until follow-up follow up with primary care provider upon discharge Follow-up with pain management outpatient Follow-up with orthopedic surgery outpatient Repeat labs in 2-3 days Discharge/Stand Alone Forms: [facility] Instructions Discharge Disposition: HOME WITH HOME HEALTH SERVICES
== END 2020-06-26 13:49 | disposition home health service (06) ==
LOC: EC 22:14 → 6NMEDSUR 06-22 00:12 → INTOOBSV 06-24 10:00 → OBSVTOIN 06-24 10:00 → UNDODISIN 06-26 13:49
PROVIDERS: ADMIT Hospitalist; ATTEND Hospitalist
PROC: 3E0233Z Introduction of Anti-inflammatory into Muscle, Percutaneous Approach (ICD-10-PCS; principal; 2020-06-26 11:45)
PROC: 3E023BZ Introduction of Anesthetic Agent into Muscle, Percutaneous Approach (ICD-10-PCS; principal; 2020-06-26 11:45)
DX: M25.512 Pain in left shoulder (principal); M79.602 Pain in left arm; R20.0 Anesthesia of skin; R07.9 Chest pain, unspecified; M50.10 Cervical disc disorder with radiculopathy, unspecified cervical region; K76.89 Other specified diseases of liver; E78.5 Hyperlipidemia, unspecified; C50.921 Malignant neoplasm of unspecified site of right male breast; C79.9 Secondary malignant neoplasm of unspecified site; G43.909 Migraine, unspecified, not intractable, without status migrainosus; M79.7 Fibromyalgia; M19.90 Unspecified osteoarthritis, unspecified site; G47.30 Sleep apnea, unspecified; G89.29 Other chronic pain; M25.559 Pain in unspecified hip; F41.9 Anxiety disorder, unspecified; F32.9 Major depressive disorder, single episode, unspecified; R00.2 Palpitations; M48.02 Spinal stenosis, cervical region; I48.0 Paroxysmal atrial fibrillation; M75.02 Adhesive capsulitis of left shoulder; M75.112 Incomplete rotator cuff tear or rupture of left shoulder, not specified as traumatic; M54.5 Low back pain; Z87.11 Personal history of peptic ulcer disease; Z87.891 Personal history of nicotine dependence; Z79.899 Other long term (current) drug therapy; Z79.1 Long term (current) use of non-steroidal anti-inflammatories (NSAID); Z88.1 Allergy status to other antibiotic agents; Z88.8 Allergy status to other drugs, medicaments and biological substances; Z20.822 Contact with and (suspected) exposure to COVID-19; Z80.0 Family history of malignant neoplasm of digestive organs; Z80.1 Family history of malignant neoplasm of trachea, bronchus and lung
CPT/HCPCS: 96376 ×6; 96361 ×4; 96375 ×3; 93005 ×2; 96374; 99285; 36415; 94760; 93306; 85379; 83880; 80061; 80053 ×2; 83690; 83735; 84484 ×2; 85025; 85027; 85610; 85730; 86140; 87635; 72050; 71275; 72141; 73221; 20553; 62321; G0378 ×5; J2250; J2270 ×2; J0360; J1200; J1100; J2930 ×3; J3360; J2405; J3010; J1170 ×7; J1885; J7512 ×2; Q9967; Q9966; J2795

== ENCOUNTER 2020-06-28 01:59 | Emergency (ER) | payer MEDICARE ==
[2020-06-28 02:08] VITALS: BP 165/107; PULSE 94; RESP 18; TEMP 98.4
[2020-06-28] MEDS ORDERED: KETOROLAC 15 MG/ML 1 ML VIAL IM STA (02:21)
[2020-06-28] MEDS ORDERED: DEXAMETHASONE SOD PHOSPHATE 10 MG/ML 1 ML VIAL IM STA (02:21)
[2020-06-28] MEDS ORDERED: diazePAM 2 MG TAB PO STA (02:22)
--- NOTE | 2020-06-28 02:59 | ED ---
General Adult HPI - General Chief complaint: Neck Pain/Injury Stated complaint: Leg pain, Body Weakness Time Seen by Provider: 06/28/20 02:08 Source: patient, RN notes reviewed Mode of arrival: wheelchair Limitations: physical limitation - History of Present Illness Initial comments: Patient is a 64-year-old male that presents to emergency department complaining of left upper x-ray pain. He moved was just recently discharged on 06/26/2020 after a pain medicine rehab procedure for a epidural on the C-spine was completed. He was also seen by orthopedics while in the hospital who recommended conservative management with physical therapy for several months before trying to surgical. Orthopedics did note that his rotator cuff is chronic in nature with no acute tears. Several MRIs were done. Patient states that all the pain came back out of nowhere today. He had to call his body used to chief of heart department to drive because he can't afford a 500 are ambulance bill. Patient was in no apparent distress or pain while sitting up in bed during the exam and interview. He denied any chest pains worse breath headache nausea vomiting diarrhea constipation. He did refuse examination of the arm due to pain and sensitivity. - Related Data Home Medications Medication Instructions Recorded Confirmed ZOLMitriptan [Zomig] 5 mg PO DAILY PRN 11/08/13 06/21/20 Sertraline [Zoloft] 100 mg PO DAILY 06/21/20 06/21/20 Previous Rx's Medication Instructions Recorded predniSONE [Deltasone] 20 mg PO DAILY #24 tab 06/22/20 Famotidine [Pepcid] 20 mg PO BID #30 tablet 06/23/20 Acetaminophen Tab [Tylenol] 1,000 mg PO Q6HR PRN tab 06/26/20 Cyclobenzaprine [Flexeril] 5 mg PO TID #12 tab 06/26/20 Gabapentin [Neurontin] 200 mg PO BID #16 cap 06/26/20 HYDROcodone/APAP 10-325MG [[place] 1 each PO Q6H PRN #12 tab 06/26/20 10-325] Metoprolol Succinate (ER) [Toprol 25 mg PO DAILY 30 Days #30 06/26/20 XL] tab.er.24h Multivitamin [Multivitamins Adult 1 each PO DAILY 30 Days #30 tablet 06/26/20 Gummies] amLODIPine [Norvasc] 10 mg PO DAILY 30 Days #30 tab 06/26/20 polyethylene glycoL 3350 [Miralax] 17 gm PO DAILY 30 Days #30 06/26/20 powd.pack Allergies Allergy/AdvReac Type Severity Reaction Status Date / Time cephalexin monohydrate AdvReac yeast in Verified 06/28/20 02:05 [From Keflex] mouth polyethylene glycol AdvReac Abdominal Verified 06/28/20 02:05 Pain Review of Systems ROS Statement: Those systems with pertinent positive or pertinent negative responses have been documented in the HPI. ROS Other: All systems not noted in ROS Statement are negative. Past Medical History Past Medical History: Fibromyalgia, Neurologic Disorder, Osteoarthritis (OA), Sleep Apnea/CPAP/BIPAP Additional Past Medical History / Comment(s): See Dr Greene H&P, states hypoglycemia, No cpap, wears mouthgaurd, chronic hip & back pain, migraines, hx ulcers History of Any Multi-Drug Resistant Organisms: None Reported Past Surgical History: Hernia Repair, Orthopedic Surgery Additional Past Surgical History / Comment(s): right hip surg,rt hand,rt shoulder, umbilical hernia repair, sx for "burst ulcer", COLONOSCOPY Past Anesthesia/Blood Transfusion Reactions: Previous Problems w/ Anesthesia Additional Past Anesthesia/Blood Transfusion Reaction / Comment(s): WAKES UP DURING PROCEDURE Past Psychological History: Anxiety, Depression Smoking Status: Former smoker Past Alcohol Use History: None Reported Past Drug Use History: None Reported - Past Family History Sister(s) Family Medical History: Cancer Additional Family Medical History / Comment(s): COLON Mother Family Medical History: Cancer Additional Family Medical History / Comment(s): LUNG General Exam Limitations: physical limitation General appearance: alert, in no apparent distress Head exam: Present: atraumatic, normocephalic, normal inspection Eye exam: Present: normal appearance, PERRL, EOMI. Absent: scleral icterus, conjunctival injection, periorbital swelling ENT exam: Present: normal exam, mucous membranes moist Neck exam: Present: normal inspection. Absent: tenderness, meningismus, lymphadenopathy Respiratory exam: Present: normal lung sounds bilaterally. Absent: respiratory distress, wheezes, rales, rhonchi, stridor Cardiovascular Exam: Present: regular rate, normal rhythm, normal heart sounds. Absent: systolic murmur, diastolic murmur, rubs, gallop, clicks GI/Abdominal exam: Present: soft, normal bowel sounds. Absent: distended, tenderness, guarding, rebound, rigid Extremities exam: Present: normal inspection, normal capillary refill. Absent: full ROM (Decreased range of motion of left arm due to pain, patient declined examination.), tenderness, pedal edema, joint swelling, calf tenderness Neurological exam: Present: alert, oriented X3, CN II-XII intact Psychiatric exam: Present: normal affect, normal mood Skin exam: Present: warm, dry, intact, normal color. Absent: rash Course Vital Signs 06/28/20 02:06 Temperature 98.4 F Pulse Rate 94 Respiratory 18 Rate Blood Pressure 165/107 O2 Sat by Pulse 97 Oximetry Medical Decision Making - Medical Decision Making 64-year-old male complaining of left arm pain, status post discharge on 06/26/2020. 15 mg of Toradol, 10 mg of Decadron, 2 mg of Valium ordered. Case discussed with Dr. Brito, decided was located discharge patient home after medication set in. Disposition Clinical Impression: Adhesive capsulitis of left shoulder, Left cervical radiculopathy, Left arm pain Disposition: HOME SELF-CARE Condition: Stable Instructions (If sedation given, give patient instructions): Arm Pain (ED) Additional Instructions: Please return to the Emergency Department if symptoms worsen or any other concerns. Follow-up with primary care in 2-4 days. Follow-up with orthopedics at earliest convenience. Follow-up with PMR as soon as possible. Get referral for physical therapy. Take at home prescriptions as prescribed. Is patient prescribed a controlled substance at d/c from ED?: No Referrals: Michoacano Allen MD [Primary Care Provider] - 1-2 days Time of Disposition: 02:59
== END 2020-06-28 03:01 | disposition home or self-care (01) ==
LOC: EC 01:59 → SUPCPDRO 01:59 → EC 03:01
DX: M75.02 Adhesive capsulitis of left shoulder (principal); M54.12 Radiculopathy, cervical region; F32.9 Major depressive disorder, single episode, unspecified; F41.9 Anxiety disorder, unspecified; G47.30 Sleep apnea, unspecified; M19.90 Unspecified osteoarthritis, unspecified site; Z87.891 Personal history of nicotine dependence; Z79.899 Other long term (current) drug therapy
CPT/HCPCS: 99283; 96372; J1100; J1885